=== PATIENT | male | born 1955 | race Caucasian/White ===

== ENCOUNTER 2020-08-02 11:56 | Day surgery (SDC) | payer MEDICARE, SELFPAY ==
[2020-07-26 12:29] VITALS: BMI 26.8
--- NOTE | 2020-07-31 09:03 | HO.ANESPROP2 ---
Documented by User: Lupe Purcell 07/31/20 09:07 HPI - Anesthesia Eval Consult details Narrative: 64yo M for colonoscopy, screening [facility] Past Medical History Medical History Elevated cholesterol GERD (gastroesophageal reflux disease) History of DVT of lower extremity History of pulmonary embolism Pre-diabetes Rupture of left hamstring tendon Surgical History Surgical History History of left knee surgery Social History Social History Are you a primary director long term care to a significant other at home: No Do you presently have visiting nurse or other home services: No Smoking Status: Never smoker Use of substances other than those prescribed or required for medical reasons: No Have you been hit, kicked, punched, or otherwise hurt by someone within the past year? If so, by whom?: No Advance Directives: No Advance Directives Information Provided: No Advance Directives on File: No Recently lost weight without trying: No Meds Allergies Allergy/AdvReac Type Severity Reaction Status Date / Time No Known Allergies Allergy Unverified 07/26/20 12:01 [No Known Allergies*] Home Medications Medication Instructions Recorded Confirmed Type aspirin [Aspir-81] 81 mg PO DAILY 07/26/20 08/02/20 History Exam Exam Date and Time: July 31, 2020 0903 Height,Weight and Vital Signs: Height 6 ft 2 in Weight 94.801 kg Pertinent Lab Results Pertinent Lab Results: Laboratory Tests 12/25/19 12/25/19 09:31 09:31 WBC 5.9 Hgb 16.3 Hct 46.0 Plt Count 204 Sodium 142 Potassium 4.4 Chloride 103 BUN 18 H Creatinine 1.23 Narrative Narrative: Echo 07/2018: nml study Assessment and Plan Assessment Anesthesia Assessment: Chart Reviewed Documented by User: Analisa Pollack 08/02/20 12:41 [facility] Past Medical History Medical History Elevated cholesterol GERD (gastroesophageal reflux disease) History of DVT of lower extremity History of pulmonary embolism Pre-diabetes Rupture of left hamstring tendon Surgical History Surgical History History of left knee surgery Social History Social History Are you a primary director long term care to a significant other at home: No Do you presently have visiting nurse or other home services: No Smoking Status: Never smoker Use of substances other than those prescribed or required for medical reasons: No Have you been hit, kicked, punched, or otherwise hurt by someone within the past year? If so, by whom?: No Advance Directives: No Advance Directives Information Provided: No Advance Directives on File: No Recently lost weight without trying: No Meds Allergies Allergy/AdvReac Type Severity Reaction Status Date / Time No Known Allergies Allergy Unverified 07/26/20 12:01 [No Known Allergies*] Home Medications Medication Instructions Recorded Confirmed Type aspirin [Aspir-81] 81 mg PO DAILY 07/26/20 08/02/20 History Exam Airway Mallampati Class: II TM Dist: >3cm Neck ROM: Full Heart: RRR Lungs: CTA
[2020-08-02 12:16] VITALS: BP 140/88; PULSE 63; RESP 16; TEMP 36.2; O2SAT 99
[2020-08-02] MEDS: Lactated Ringers 1,000 ML 100 ML IVCONT (12:28)
--- NOTE | 2020-08-02 13:02 | MHC.SHP ---
Pre-Procedural Eval Section A The patient is an INPATIENT: No The History & Physical has been completed within 30 days and I have reviewed it.: No Section B Chief Complaint: Gerd,Screening Details of Present Illness: Colon cancer screening, GERD, Dysphagia FH of stomach ca (Mom) Relevant Family History (Specify if Yes): Yes Relevant Social History: None Present Medications: see Short Stay Collaborative assessment Medical History: Significant History ( Hypercholesterolemia. GERD. Pre dm hga1c. DVT with PE . ) History of Previous Operations: Relevant previous surgery/procedure and date(s) (left leg hamstring ) Allergies: Allergies Allergy/AdvReac Type Severity Reaction Status Date / Time No Known Allergies Allergy Unverified 07/26/20 12:01 [No Known Allergies*] Review of Systems Sugical H&P ROS: Negative: Constitution, Cardiovascular, Respiratory and Psychiatric and Yes, Specify: Gastrointestinal (GERD) Exam Surgical H&P Exam: Normal: Heart, Normal: Lungs, Normal: Extremities and Normal: Abdomen Plan Diagnosis/Plan: Unchanged Patient has been examined and remains a candidate for the planned procedure
--- NOTE | 2020-08-02 13:20 | PM.OP ---
Brief Operative Note Date of procedure: 08/11/20 Pre-op diagnosis: Colon cancer screening, GERD, ? dysphagia Post-op diagnosis: other ( erosive esophagitis, hiatal hernia, gastric nodule, colon polyps, diverticulosis and hemorrhoids) Procedure: FLEXIBLE TRANSORAL UPPER GASTROINTESTINAL ENDOSCOPY AND COLONOSCOPY PROCEDURE NOTE UPPER ENDOSCOPY WITH BIOPSIES Consent: Indications for the procedure and potential complications of bleeding, perforation, reaction to medications and missed diagnosis were discussed with the patient and informed consent was obtained. Instrument: Olympus GIF H 190 mid size upper endoscope Monitoring: Vital signs and clinical assessment, continuous EKG monitoring, Pulse oximetry, Carbon Dioxide monitoring and blood pressure monitoring were done throughout the procedure. Procedure: The patient was placed in the left lateral decubitis position and pre-procedure medications were administered and a bite block was placed. The endoscope was inserted into the mouth and advanced under direct vision to the third part of duodenum. A careful inspection was made as the upper endoscope was withdrawn including a retroflexed examination of the proximal stomach; Findings and interventions are described below. Findings: Larynx: Normal Esophagus: GE junction at 35 cms, hiatal hernia 35 to 42 cms. Grade 3-4 esophagitis with multiple linear erosions from 30 to 35 cms. No stricture noted. Stomach: A 1.5 to 2 cms nodule with normal overlying mucosa and central umblication - biopsies were obtained. Mild gastric erythema. Biopsies were obtained. Grade 4 flap valve on retroflexed examination of the cardia. Duodenum: Nodular mucosa in apex of bulb - biopsied. Normal descending duodenum Intervention: Biopsies as noted above COLONOSCOPY TILL CECUM WITH BIOPSIES AND SNARE POLYPECTOMY Consent: Indications for the procedure and potential complications of bleeding, perforation, reaction to medications and missed diagnosis were discussed with the patient and informed consent was obtained. Instrument: Olympus PCF H 190 L variable stiffness pediatric colonoscope Monitoring: Vital signs and clinical assessment, intermittent blood pressure monitoring, continuous EKG monitoring, Pulse oximetry and Carbon Dioxide monitoring were done throughout the procedure. Colon withdrawl time was 19 minutes. Procedure: The patient was placed in the left lateral decubitis position and pre-procedure medications were administered. After a digital rectal examination of the ano-rectum, the video colonoscope was inserted into the rectum and advanced through the colon to the cecum. The colonoscope was slowly withdrawn in a retrograde panoramic fashion and the colon mucosa was carefully examined including a retroflexed view of the rectum. Findings and interventions are described below. Procedure Difficulty: Without difficulty Findings: Terminal Ileum: Not evaluated Cecum: Partially evaluated due to fair prep. A 4-5 mm sessile polyp removed with a cold bx. Ascending Colon: Normal Transverse Colon: A 7-8 mm sessile polyp removed with a cold snare. Descending Colon: Moderate diverticulosis Sigmoid Colon: Moderate diverticulosis Rectum: Normal Ano-rectum: Moderate internal hemorrhoids Colon preparation: Fair despite copious irrigation Impression and Post Procedure Diagnosis: Endoscopy Findings: ESOPHAGUS: GE junction at 35 cms, hiatal hernia 35 to 42 cms. Grade 3-4 esophagitis with multiple linear erosions from 30 to 35 cms. No stricture noted. STOMACH: A 1.5 to 2 cms nodule with normal overlying mucosa and central umblication - biopsies were obtained. Mild gastric erythema. Biopsies were obtained. Grade 4 flap valve on retroflexed examination of the cardia. DUODENUM: Nodular mucosa in apex of duodenal bulb Colonoscopy Findings: Three polyps removed Moderate diverticulosis seen in the []colon Moderate hemorrhoids on retroflexed exam. Plan: Await pathology results. If biopsies from gastric nodule are normal, [place] [facility] [place] Patient has an appointment on 08/12/20 in the GI Clinic with KVNG Cheng. Repeat Colonoscopy interval based on path results - in 1-2 years due to fair prep Above findings were reviewed with the patient and colon polyps and diverticulosis handouts were given in the discharge area Surgeon: Manju Mclain MD Anesthesia: MAC (Dr Pollack & Ninfa Ibarra CRNA) Research Scholar: Vipin Valente Estimated blood loss (mL): 0 Pathology: other (A. Stomach, antrum, biopsy. B. Gastric nodule C. Duodenal bulb, D. cecal polyp, E. transverse colon polyp, F. sigmoid colon polyp) Condition: stable Disposition: PACU
[2020-08-02 14:21] VITALS: BP 100/62; PULSE 80; RESP 16; TEMP 36.6; O2SAT 95
[2020-08-02 14:35] VITALS: BP 103/75; PULSE 82; RESP 18; TEMP 36.6; O2SAT 95
--- NOTE | 2020-08-02 15:01 | HO.POSTANES ---
Post Anesthesia Evaluation Post Anesthesia Evaluation Vital Signs: Vital Signs Temp Pulse Resp BP Pulse Ox 08/02/20 14:35 97.8 F 82 18 103/75 95 08/02/20 14:21 97.9 F 80 16 100/62 95 08/02/20 12:16 97.2 F 63 16 140/88 H 99 Anesthesia: Monitored Mental Status: Awake Pain Control: Satisfactory Nausea/Vomiting: None Hydration: Adequate Anesthesia-Related Issues: No Anes. Related Issues
== END 2020-08-02 15:07 | disposition home or self-care (01) ==
PROVIDERS: PCP Nurse Practitioner Family; Visit Provider Internal Medicine Gastroenterology
PROC: (CPT 45385; principal; 2020-08-02 13:00)
DX: Z12.11 Encounter for screening for malignant neoplasm of colon (principal); D12.0 Benign neoplasm of cecum; D12.3 Benign neoplasm of transverse colon; D12.5 Benign neoplasm of sigmoid colon; Z80.0 Family history of malignant neoplasm of digestive organs; K57.30 Diverticulosis of large intestine without perforation or abscess without bleeding; K64.8 Other hemorrhoids; K29.50 Unspecified chronic gastritis without bleeding; K21.00 Gastro-esophageal reflux disease with esophagitis, without bleeding; K44.9 Diaphragmatic hernia without obstruction or gangrene; K31.7 Polyp of stomach and duodenum; R73.03 Prediabetes; E78.00 Pure hypercholesterolemia, unspecified; Z86.718 Personal history of other venous thrombosis and embolism; Z79.01 Long term (current) use of anticoagulants; Z86.711 Personal history of pulmonary embolism; Z79.82 Long term (current) use of aspirin
CPT/HCPCS: 45385; 45380; 88305; 88342; J3010

== ENCOUNTER → 2020-08-12 08:32 | Outpatient (BNVA) | payer MEDICARE, OTHER, SELFPAY | PROVIDERS: PCP Nurse Practitioner Family; Referring Provider Nurse Practitioner Family; Visit Provider Physician Assistant | DX: K21.9 Gastro-esophageal reflux disease without esophagitis (principal); D12.6 Benign neoplasm of colon, unspecified; Z98.890 Other specified postprocedural states | CPT/HCPCS: 99212 ==

== ENCOUNTER → 2021-04-23 11:53 | Outpatient (BNVA) | payer MEDICARE, SELFPAY | PROVIDERS: PCP Nurse Practitioner Family; Visit Provider Physician Assistant | DX: Z13.89 Encounter for screening for other disorder (principal) | CPT/HCPCS: Q3014 ==

== ENCOUNTER → 2021-07-30 09:23 | Outpatient (BNVA) | payer MEDICARE, SELFPAY | PROVIDERS: PCP Nurse Practitioner Family; Referring Provider Nurse Practitioner Family; Visit Provider Physician Assistant | CPT/HCPCS: Q3014 ==

== ENCOUNTER 2021-10-30 08:07 | Outpatient (REF) | payer MEDICARE, SELFPAY ==
[2021-10-30 11:32] LABS: Prothrombin Time 10.8 SEC (9.9-13.0)
[2021-10-30 11:34] LABS: Partial Thromboplastin Time 31.3 SEC (24.1-38.0)
[2021-10-30 11:36] LABS: Appearance Urine CLOUDY; Color Urine YELLOW; Glucose Urine UA NEG (NEG); Leukocyte Esterase Urine NEG (NEG); Nitrite Urine NEG (NEG); PH 5.5 (5.0-8.0); Specific Gravity - Urine >= 1.030 (1.005-1.025); Urine Blood NEG (NEG); Urine Ketones NEG (NEG); Urine Protein NEG (NEG-TRACE)
[2021-10-30 12:06] LABS: Alanine Aminotransferase 17 U/L (0-40); Alkaline Phosphatase 60 U/L (39-117); Anion Gap 12 (12-20); Aspartate Amino Transferase 16 U/L (5-37); Bilirubin Total 0.6 mg/dL (0.0-1.0); Blood Urea Nitrogen 24 mg/dL (9-16); Calcium 9.3 mg/dL (8.4-10.2); Carbon Dioxide 27 mmol/L (22-29); Chloride 104 mmol/L (96-108); Cholesterol 195 mg/dL; Estimated Glomerular Filt Rate 59; Glucose Fasting 162 mg/dL (60-99); HDL Cholesterol 45 mg/dL; LDL Cholesterol Calculated 120 mg/dl; Potassium 4.4 mmol/L (3.3-5.1); Sodium 139 mmol/L (135-145); Triglycerides 150 mg/dL
[2021-10-30 12:19] LABS: TSH reflex Free T4 0.94 uIU/mL (0.32-4.0)
== END 2021-10-30 08:08 | disposition home or self-care (01) ==
LOC: HO.HMGCLDS 08:07
PROVIDERS: PCP Nurse Practitioner Family; Visit Provider Nurse Practitioner Family
DX: Z01.818 Encounter for other preprocedural examination (principal)
CPT/HCPCS: 36415; 80053; 80061; 81003; 84443; 85610; 85730

== ENCOUNTER 2022-03-23 15:51 | Outpatient (REF) | payer MEDICARE, SELFPAY ==
--- NOTE | ~2022-03-23 | XR_ITS ---
EXAMINATION: XR ANKLE, RIGHT CLINICAL INFORMATION: Sprain right ankle COMPARISON: None TECHNIQUE: AP, lateral, and mortise views of the right ankle. FINDINGS: The bones and soft tissues are unremarkable. No fracture. Alignment is anatomic. Joint spaces are maintained. No joint effusion. XR/XR ankle RT min 3V IMPRESSION: No evidence of a traumatic osseous injury.
== END 2022-03-23 15:52 | disposition home or self-care (01) ==
LOC: HO.HMGCX 15:51
PROVIDERS: PCP Nurse Practitioner Family; Visit Provider Internal Medicine
DX: S93.401A Sprain of unspecified ligament of right ankle, initial encounter (principal)
CPT/HCPCS: 73610

== ENCOUNTER 2022-10-11 06:04 | Emergency (ER) | payer OTHER, MEDICARE, SELFPAY ==
[2022-10-11 07:11] VITALS: BP 129/79; PULSE 78; RESP 18; TEMP 36.7; O2SAT 97; BMI 29.1
--- NOTE | 2022-10-11 08:25 | ED_ITS ---
HPI - Extremity Problem General Chief complaint: Extremity Injury, Upper Stated complaint: shoulder pain, injury Time Seen by Provider: 10/11/22 07:48 Source: patient Mode of arrival: ambulatory Limitations: no limitations History of Present Illness HPI Narrative: Patient is a 66-year-old male who presents to the emergency department for evaluation of right shoulder pain. Onset of pain was 3 days ago, states that he was tightening a strap while at work when he felt a sudden pop with pain to the right shoulder. Pain has been progressively worsening, causing decreased range of motion. He denies any history of pain to this shoulder in the past. Denies numbness, tingling, weakness, or cold sensation to the hand. He has not taken any medications to help with the pain, including any OTC. Denies any redness, swelling, deformity, rash, fevers, chills, neck pain, chest pain, shortness of breath.. Related Data Previous Rx's Medication Instructions Recorded naproxen 500 mg tablet 500 mg PO BID PRN pain #14 tabs 10/11/22 omeprazole 20 mg capsule,delayed 20 mg PO DAILY #10 caps 10/11/22 release Allergies Allergy/AdvReac Type Severity Reaction Status Date / Time No Known Allergies Allergy Verified 03/23/22 15:41 [No Known Allergies*] Review of Systems Review of Systems: Constitutional: No fever, chills, weakness or fatigue. Skin: No rash or itching. Cardiovascular: No chest pain, no palpitations Respiratory: No shortness of breath, cough or sputum production. Gastrointestinal: No nausea, vomiting or diarrhea. No abdominal pain Genitourinary: No burning micturition. No urinary frequency or incontinence. Musculoskeletal: Positive shoulder pain as noted in HPI Psychiatric: No depression or anxiety. Yes all other systems are reviewed and are negative [facility] Past Medical History Attestation statement: The following information was validated with the patient. Source: old records reviewed Medical History Acid reflux Diverticulosis Elevated cholesterol GERD (gastroesophageal reflux disease) Hemorrhoids History of DVT of lower extremity History of pulmonary embolism Pre-diabetes Rupture of left hamstring tendon Surgical History H/O colonoscopy History of esophagogastroduodenoscopy (EGD) History of left knee surgery Family History Family History Mother Gastric cancer Social History Social History Housing: House Are you a primary residential caregiver to a significant other at home: No Do you presently have visiting nurse or other home services: No Patient Tobacco Use Status: Never used Tobacco e-Cigarette/Vaping Use: Never Used 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 No acute distress.?Normal affect. Eyes: Pupils equal, round and reactive to light.? ENT: Pharynx normal.?? Neck: Normal inspection.? Neck supple.?? CVS: Heart sounds normal. Normal heart rate and rhythm.? Pulses normal.?? Respiratory: No respiratory distress.? Lung sounds clear to auscultation bilaterally?? Abdomen: Soft and non-tender. Skin: Skin warm and dry.? Normal skin color.? Extremities: Range of motion is decreased to the right shoulder, but he is able to abduct adduct and elevate the shoulder. No obvious deformity. No erythema, warmth, rash. 2+ radial pulse bilaterally. Full range of motion to the right elbow and wrist. Point tenderness along the biceps tendon insertion site. No weakness, master pilot strengths are equal and strong bilaterally Neuro: Moves all extremities spontaneously. Sensation intact bilaterally. Ambul ates with normal steady gait. Medications Administered Discontinued Medications Generic Name Dose Route Start Last Admin Trade Name Freq PRN Reason Stop Dose Admin Naproxen 500 mg 10/11/22 08:41 10/11/22 08:52 Naproxen 500 Mg Tablet PO 10/11/22 08:42 500 mg ONCE ONE Administration Medical Decision Making Medical Decision Making MDM Narrative: Patient is a 66-year-old male with a past medical history of GERD, HLD, history of DVT not currently on anticoagulation, history of left hamstring rupture. Presents emergency department for evaluation of right shoulder pain. Overall is well-appearing, not consistent with septic arthritis. XR reveals osteoarthrosis of the glenohumeral and acromioclavicular joints. Point tenderness along the biceps tendon insertion site appears most consistent with tendinitis, in addition to flare of arthritis.. Advised rest, ice/heat, acetaminophen, high- dose NSAID for which naproxen and prescription for omeprazole was sent to patient's pharmacy. Abdominal examination is benign, do not think this is consistent with referred biliary pain. Advised outpatient follow-up with PCP/Orthopedics for persistent symptoms. Reviewed worrisome signs and symptoms to return to emergency department for. All questions answered. Patient discharged in stable condition. Differential Diagnosis Differential Diagnoses: The differential diagnosis associated with the presentation includes (Tendinitis, dislocation, ligamentous tear, biliary colic) Independent Interpretation I performed an independent interpretation of an: Plain X-Ray Interpretation: I have interpreted the x-ray and agree with the radiologist's impression, there is no obvious fracture and no dislocation. Radiology Impression Discussion of test interpretation with radiology: I have reviewed the radiologist's reading. 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 Prescription Management Prescription for naproxen and omeprazole sent to patient's pharmacy. Discharge Plan Discharge Clinical Impression: Biceps tendinitis of right shoulder Patient Disposition: Home, Self-Care Instructions: Tendinitis (ED) Additional Instructions: As discussed please rest, apply ice/heat to the area for 10-15 minutes 4-6 times daily. You have been given a prescription for naproxen to take twice daily, please take this in addition to the omeprazole to prevent stomach upset. You can take Tylenol 500 mg, 2 tablets (1,000mg) every 4-6 hours as needed for pain, but not to exceed 3 doses daily (3,000mg). As discussed please follow-up with your primary care provider, if you continue to have pain over the next week or 2 you may consider following up with Orthopedics for further evaluation and treatment Return to emergency department with any new or worsening symptoms or concerns. ? Prescriptions: New naproxen 500 mg tablet 500 mg PO BID PRN (Reason: pain) Qty: 14 0RF omeprazole 20 mg capsule,delayed release(DR/EC) 20 mg PO DAILY Qty: 10 0RF Referrals: Ayaz Vera FNP-BC [Primary Care Provider] - Cathie Yang PA-C [Physician Patient Transporter] - Interventions: ED Discharge Assessment Last Done: 10/11/22 08:55 Discharge Date/Time: 10/11/22 08:55
== END 2022-10-11 08:55 | disposition home or self-care (01) ==
PROVIDERS: Emergency Provider Student in an Organized Health Care Education/Training Program; PCP Nurse Practitioner Family
DX: M75.21 Bicipital tendinitis, right shoulder (principal)
CPT/HCPCS: 73030; 99283

== ENCOUNTER 2023-02-18 14:38 | Outpatient (REF) | payer MEDICARE, SELFPAY ==
[2023-02-18 16:29] LABS: MANUAL DIFF FLAG NO
[2023-02-18 16:34] LABS: Basophils Percent Auto 0.5 % (0-2); Eosinophils Absolute Auto 0.1 X10*3/uL (0.0-0.4); Eosinophils Percent Auto 1.8 % (0-4); Hematocrit 41.6 % (42.0-52.0); Hemoglobin 15.1 g/dl (14.0-18.0); Imm Gran Abs Auto 0.01 X10*3/uL (0.00-0.03); Imm Gran Pct Auto 0.2 % (0.0-0.4); Lymphocytes Absolute Auto 1.8 X10*3/uL (1.2-4.9); Lymphocytes Percent Auto 32.6 % (20-40); Mean Corpuscular HGB Conc 36.3 g/dl (31.0-36.0); Mean Corpuscular Hemoglobin 34.2 pg (27.0-33.0); Mean Corpuscular Volume 94.3 fL (80.0-98.0); Mean Platelet Volume 11.1 fL (9.4-12.4); Monocytes Absolute Auto 0.5 X10*3/uL (0.1-1.2); Monocytes Percent Auto 9.8 % (2-11); Neutrophils Percent Auto 55.1 % (45-73); Platelet Count 195 X10*3/uL (160-400); Red Blood Count 4.41 X10*6/uL (4.60-5.80); White Blood Count 5.5 X10*3/uL (4.8-10.8)
[2023-02-18 16:35] LABS: Appearance Urine Clear; Color Urine Yellow; Glucose Urine UA >=1000 mg/dL (Negative); Leukocyte Esterase Urine Negative (Negative); Nitrite Urine Negative (Negative); PH 5.5 (5.0-9.0); Specific Gravity - Urine 1.025 (1.005-1.025); UMIC TRIGGER UACC YES; Urine Blood Negative (Negative); Urine Ketones Negative (Negative); Urine Protein Negative (Neg-Trace)
[2023-02-18 16:44] LABS: Bacteria Urine None Seen (None Seen); Hyaline Casts Urine 0-2 /LPF (0-2); RBC Urine 0-2 /HPF (0-2); Squamous Epithelial Cell Urine 0-2 /HPF (0-2); WBC Urine 0-5 /HPF (0-5)
[2023-02-18 16:52] LABS: Alanine Aminotransferase 18 U/L (0-40); Albumin Level 4.1 g/dL (3.5-5.0); Alkaline Phosphatase 67 U/L (39-117); Anion Gap 14 (12-20); Aspartate Amino Transferase 15 U/L (5-37); Bilirubin Total 0.7 mg/dL (0.0-1.0); Blood Urea Nitrogen 17 mg/dL (9-16); Calcium 9.3 mg/dL (8.4-10.2); Carbon Dioxide 27 mmol/L (22-29); Chloride 103 mmol/L (96-108); Cholesterol 224 mg/dL; Estimated Glomerular Filt Rate > 60; Glucose Fasting 174 mg/dL (60-99); HDL Cholesterol 46 mg/dL; LDL Cholesterol Calculated 127 mg/dl; Potassium 4.2 mmol/L (3.3-5.1); Sodium 140 mmol/L (135-145); Total Protein 6.7 g/dL (6.5-8.0); Triglycerides 258 mg/dL
[2023-02-18 17:09] LABS: Prostate Specific Antigen Scr 2.67 ng/mL (<0.05-4.0); TSH reflex Free T4 1.02 uIU/mL (0.32-4.0)
[2023-02-22 23:48] LABS: A. Phagocytphilium DNA,RT-PCR NOT DETECTED (NOT DETECTED); Babesia Microti DNA, RT-PCR NOT DETECTED (NOT DETECTED); Borrelia Miyamotoi,DNA RT-PCR NOT DETECTED (NOT DETECTED); E.Chaffeensis DNA RT-PCR NOT DETECTED (NOT DETECTED); Lyme(Borrelia ssp)DNA RT-PCR NOT DETECTED (NOT DETECTED)
== END 2023-02-18 14:39 | disposition home or self-care (01) ==
LOC: HO.HMGCLDS 14:38
PROVIDERS: PCP Nurse Practitioner Family; Visit Provider Nurse Practitioner Family
DX: T14.8XXA Other injury of unspecified body region, initial encounter (principal); R73.01 Impaired fasting glucose; W57.XXXA Bitten or stung by nonvenomous insect and other nonvenomous arthropods, initial encounter; Y93.9 Activity, unspecified; Y92.9 Unspecified place or not applicable; Y99.9 Unspecified external cause status; Z20.2 Contact with and (suspected) exposure to infections with a predominantly sexual mode of transmission; Z12.5 Encounter for screening for malignant neoplasm of prostate; E78.5 Hyperlipidemia, unspecified; D64.9 Anemia, unspecified
CPT/HCPCS: 36415; 80053; 80061; 81001; 84153; 84443; 85025; 87798; 87801

== ENCOUNTER 2023-02-24 10:55 | Outpatient (REF) | payer MEDICARE, SELFPAY ==
[2023-02-24 14:16] LABS: MANUAL DIFF FLAG NO
[2023-02-24 14:30] LABS: Basophils Percent Auto 0.7 % (0-2); Eosinophils Absolute Auto 0.2 X10*3/uL (0.0-0.4); Eosinophils Percent Auto 3.3 % (0-4); Hematocrit 43.5 % (42.0-52.0); Imm Gran Abs Auto 0.02 X10*3/uL (0.00-0.03); Imm Gran Pct Auto 0.4 % (0.0-0.4); Lymphocytes Absolute Auto 1.7 X10*3/uL (1.2-4.9); Lymphocytes Percent Auto 30.9 % (20-40); Mean Corpuscular HGB Conc 34.5 g/dl (31.0-36.0); Mean Corpuscular Hemoglobin 33.6 pg (27.0-33.0); Mean Corpuscular Volume 97.5 fL (80.0-98.0); Mean Platelet Volume 10.8 fL (9.4-12.4); Monocytes Absolute Auto 0.5 X10*3/uL (0.1-1.2); Monocytes Percent Auto 8.9 % (2-11); Neutrophils Percent Auto 55.8 % (45-73); Platelet Count 182 X10*3/uL (160-400); Red Blood Count 4.46 X10*6/uL (4.60-5.80); White Blood Count 5.4 X10*3/uL (4.8-10.8)
[2023-02-24 15:01] LABS: Estimated Average Glucose 177 mg/dL; Hemoglobin A1c % 7.8 %
[2023-02-24 20:58] LABS: Alanine Aminotransferase 16 U/L (0-40); Alkaline Phosphatase 64 U/L (39-117); Anion Gap 17 (12-20); Aspartate Amino Transferase 17 U/L (5-37); Bilirubin Total 1.2 mg/dL (0.0-1.0); Blood Urea Nitrogen 15 mg/dL (9-16); Calcium 9.2 mg/dL (8.4-10.2); Carbon Dioxide 24 mmol/L (22-29); Chloride 106 mmol/L (96-108); Estimated Glomerular Filt Rate > 60; Glucose Random 167 mg/dL (60-115); Iron 117 mcg/dL (45-160); Percent Iron Saturation 39 % (15-50); Potassium 4.1 mmol/L (3.3-5.1); Sodium 143 mmol/L (135-145); Total Iron Binding Capacity 298 mcg/dL (228-428); Total Protein 6.5 g/dL (6.5-8.0); Unsaturated Iron Binding 181 ug/dL
[2023-02-24 21:24] LABS: Ferritin 213 ng/mL (20-250); Folate 10.5 ng/mL (> or = 4.0); Vitamin B12 318 pg/mL (200-900)
== END 2023-02-24 10:56 | disposition home or self-care (01) ==
LOC: HO.HMGCLDS 10:55
PROVIDERS: PCP Nurse Practitioner Family; Visit Provider Nurse Practitioner Family
DX: R73.03 Prediabetes (principal); D64.9 Anemia, unspecified
CPT/HCPCS: 36415; 80053; 82607; 82728; 82746; 83036; 83540; 85025

== ENCOUNTER → 2023-03-11 08:43 | Outpatient (BNVA) | payer MEDICARE, SELFPAY | PROVIDERS: PCP Nurse Practitioner Family; Visit Provider Nurse Practitioner Family | DX: R35.0 Frequency of micturition (principal) | CPT/HCPCS: 51798; 99202 ==

== ENCOUNTER 2023-04-05 09:48 | Outpatient (REF) | payer MEDICARE, SELFPAY ==
--- NOTE | ~2023-04-05 | US_ITS ---
EXAMINATION: US RETROPERITONEAL COMPLETE (RENAL) CLINICAL INFORMATION: Frequency of micturition. COMPARISON: None available. TECHNIQUE: Real-time imaging of the kidneys and bladder. FINDINGS: RIGHT KIDNEY: 12.4 x 6.2 x 5.3 cm (SAG x AP x TRV). The kidney is normal in size, contour, and echogenicity. Renal cortical thickness is normal. No calculi or focal parenchymal lesions. No hydronephrosis. LEFT KIDNEY: 11.4 x 6.3 x 4.6 cm (SAG x AP x TRV). The kidney is normal in size, contour, and echogenicity. Renal cortical thickness is normal. No calculi or focal parenchymal lesions. No hydronephrosis. BLADDER: Well distended and normal. Bilateral ureteral jets are demonstrated. Prevoid bladder volume is 169.9 mL. Postvoid bladder volume is 64.0 mL. The prostate gland measures 5.5 x 4.5 x 4.9 cm for a volume of 64.6 mL. There are coarse calcifications within the prostate gland. US/US retroperitoneal comp IMPRESSION: Unremarkable renal ultrasound.
== END 2023-04-05 09:49 | disposition home or self-care (01) ==
LOC: HO.US 09:48
PROVIDERS: PCP Nurse Practitioner Family; Visit Provider Nurse Practitioner Family
DX: R35.0 Frequency of micturition (principal)
CPT/HCPCS: 76770

== ENCOUNTER → 2023-04-07 14:56 | Outpatient (BNVA) | payer MEDICARE, SELFPAY | PROVIDERS: PCP Nurse Practitioner Family; Visit Provider Physician Assistant | DX: Z12.11 Encounter for screening for malignant neoplasm of colon (principal); D36.9 Benign neoplasm, unspecified site; K21.9 Gastro-esophageal reflux disease without esophagitis; K57.90 Diverticulosis of intestine, part unspecified, without perforation or abscess without bleeding; R73.03 Prediabetes | CPT/HCPCS: 99212 ==

== ENCOUNTER → 2023-04-13 10:23 | Outpatient (BNVA) | payer MEDICARE, SELFPAY | PROVIDERS: Visit Provider Nurse Practitioner Family | DX: N40.1 Benign prostatic hyperplasia with lower urinary tract symptoms (principal); R35.0 Frequency of micturition | CPT/HCPCS: 51798; 99212 ==

== ENCOUNTER 2023-08-24 10:45 | Outpatient (AMB) | payer MEDICARE, OTHER, SELFPAY ==
--- NOTE | 2023-08-24 10:53 | MHC.PC.OV ---
Vital Signs 08/24/23 10:57 Height 6 ft Weight 211 lb BMI 28.6 BP 140/100 H Blood Pressure Location Lt brachial Position Sitting Pulse 75 Pulse Source Pulse Oximeter Pulse Oximetry (%) 95 Oxygen Delivery Method Room Air Intake Visit Reasons: 6 Month follow up Allergies No Known Allergies [No Known Allergies*] Allergy (Verified 08/24/23 11:14) Medication List - Last Reconciled 08/24/23 by RUPINDER Grey-ALISA bisacodyl (Dulcolax (bisacodyl)) 20 mg (4 x 5 mg) PO ONCE 1 day blood sugar diagnostic (FreeStyle Lite Strips) Use to check blood sugars twice daily, fasting and a random sugar blood-glucose meter (FreeStyle Lite Meter kit) Use to check blood sugars twice daily, fasting and a random sugar finasteride 5 mg PO DAILY 90 days lancets (FreeStyle Lancets) Use to check blood sugars twice daily, fasting and a random sugar lisinopril 2.5 mg PO DAILY metformin 500 mg PO DAILY polyethylene glycol 3350 (Miralax) 238 grams PO ONCE PRN 1 day Tobacco use date assessed: 08/24/23 HPI 6 Month follow up HPI Details Pt is a diabetic, on an KAYLA and a statin. A1C in office today is 7.2. Due for microalbumin. Denies polyuria, polydipsia, and neuropathy. Pt denies any signs and symptoms of hypoglycemia and does know how to correct it. Pt does not check his blood sugar and does not want to. Eye exam is up to date according to pt. Pt reports that he has not been taking his medications, because he was feeling off. Will resend these and have pt start these meds, one at a time, 2 weeks before restarting another med. Pt is not a fan of many medications. Pt reports feeling well. Reports his BP was much better 2.5 weeks ago. [facility] Medical History Acid reflux Diverticulosis Elevated cholesterol GERD (gastroesophageal reflux disease) Hemorrhoids History of DVT of lower extremity History of pulmonary embolism Pre-diabetes Rupture of left hamstring tendon Surgical History H/O colonoscopy History of esophagogastroduodenoscopy (EGD) History of left knee surgery Family History Mother Gastric cancer Social History Housing: House Are you a primary nurse care manager to a significant other at home: No Do you presently have visiting nurse or other home services: No Patient Tobacco Use Status: Never used Tobacco e-Cigarette/Vaping Use: Never Used 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 occupational status: retired Review of Systems Const Reports as per HPI Physical exam (Primary Care) Vital Signs: Last Vital Signs Pulse 75 08/24/23 10:57 BP 140/100 H 08/24/23 10:57 Pulse Ox 95 08/24/23 10:57 Oxygen Delivery Method Room Air 08/24/23 10:57 BMI result Body Mass Index 28.6 Tobacco/Smoking Status: Tobacco use Status Tobacco use date assessed 08/24/23 08/24/23 10:59 Patient Tobacco Use Status Never used Tobacco 08/24/23 10:54 e-Cigarette/Vaping Use Never Used 08/24/23 10:54 Const General: cooperative Orientation/consciousness: patient oriented x3 Resp Effort & Inspection: normal respiratory effort Auscultation: clear to auscultation bilaterally Cardio Rate: regular rate Rhythm: regular rhythm Heart sounds: S1 normal heart sound present and S2 normal heart sound present Neuro General: patient oriented x3 Extrem Other: bilat feet: + sensation with use of monofilament, intact Psych Appearance: grossly normal Mental Status: mental status grossly normal Speech and movement: Normal speech and movement present Affect: normal affect Attitude: cooperative Thought process: Normal thought process present Thought content: Normal thought content present Insight: Good insight present (Psych) Judgement: Good judgement present (Psych) Results AMB Hemoglobin A1c AMB Hemoglobin A1c 7.2 % Last Edit by PEDRO Odell on 08/24/23 11:26 Results Reviewed Results Reviewed: Laboratory Last Values Hgb A1c (Clinic) 7.2 % (4.0-6.0) H 08/24/23 11:25 Assessment and Plan Assessment & Plan (1) Diabetes: Code(s): E11.9 - Type 2 diabetes mellitus without complications Plan: restarting meds, one med at a time, adding medication after 2 weeks Plan The patient agreed to the use of a biomedical engineering director for this encounter. Scribed for BRITNI Espinoza by Yessica Almazan biomedical engineering director, on 08/24/2023 at 11:15 EST. Orders: Orders TSH reflex Free T4 Today E11.9 - Type 2 diabetes mellitus without complications UA CC w/rflx Micro + Cult Today E11.9 - Type 2 diabetes mellitus without complications AMB Hemoglobin A1c Today Z13.9 - Encounter for screening, unspecified Complete Blood Count Auto Diff Today E11.9 - Type 2 diabetes mellitus without complications Comprehensive [place]. Panel Fast Today E11.9 - Type 2 diabetes mellitus without complications Lipid Panel Today E11.9 - Type 2 diabetes mellitus without complications Medications: Refilled lisinopril 2.5 mg PO DAILY 90 tabs 1RF metformin 500 mg PO DAILY 90 tabs 1RF Coding Level of Care Code Est Pt Level 3 (71873) Diagnoses Diabetes E11.9
[2023-08-24 10:57] VITALS: BP 140/100; PULSE 75; O2SAT 95; BMI 28.6
== END 2023-08-24 11:39 | disposition home or self-care (01) ==
PROVIDERS: Visit Provider Nurse Practitioner Family
DX: E11.9 Type 2 diabetes mellitus without complications (principal)
CPT/HCPCS: 83036; 99213

== ENCOUNTER 2023-10-15 06:41 | Outpatient (REF) | payer MEDICARE, OTHER, SELFPAY ==
[2023-10-15 07:00] LABS: MANUAL DIFF FLAG NO
[2023-10-15 08:16] LABS: Basophils Absolute Auto 0.1 X10*3/uL (0.0-0.2); Basophils Percent Auto 0.9 % (0-2); Eosinophils Absolute Auto 0.3 X10*3/uL (0.0-0.4); Eosinophils Percent Auto 3.9 % (0-4); Hematocrit 45.2 % (42.0-52.0); Hemoglobin 15.8 g/dl (14.0-18.0); Imm Gran Abs Auto 0.02 X10*3/uL (0.00-0.03); Imm Gran Pct Auto 0.3 % (0.0-0.4); Lymphocytes Absolute Auto 2.2 X10*3/uL (1.2-4.9); Lymphocytes Percent Auto 34.5 % (20-40); Mean Corpuscular Hemoglobin 34.5 pg (27.0-33.0); Mean Corpuscular Volume 98.7 fL (80.0-98.0); Mean Platelet Volume 11.4 fL (9.4-12.4); Monocytes Absolute Auto 0.6 X10*3/uL (0.1-1.2); Monocytes Percent Auto 9.2 % (2-11); Neutrophils Absolute Auto 3.3 x10*3/uL (2.0-8.3); Neutrophils Percent Auto 51.2 % (45-73); Platelet Count 197 X10*3/uL (160-400); Red Blood Count 4.58 X10*6/uL (4.60-5.80); Red Cell Distribution Width 12.1 % (11.0-16.0); White Blood Count 6.4 X10*3/uL (4.8-10.8)
[2023-10-15 08:51] LABS: Alanine Aminotransferase 17 U/L (0-40); Albumin Level 4.1 g/dL (3.5-5.0); Alkaline Phosphatase 57 U/L (39-117); Anion Gap 13 (12-20); Aspartate Amino Transferase 18 U/L (5-37); Bilirubin Total 0.7 mg/dL (0.0-1.0); Blood Urea Nitrogen 22 mg/dL (9-16); Calcium 9.4 mg/dL (8.4-10.2); Carbon Dioxide 29 mmol/L (22-29); Chloride 102 mmol/L (96-108); Cholesterol 216 mg/dL (<200); Estimated Glomerular Filt Rate > 60; Glucose Fasting 163 mg/dL (60-99); HDL Cholesterol 49 mg/dL (>40); LDL Cholesterol Calculated 134 mg/dL (<100); Potassium 3.7 mmol/L (3.3-5.1); Sodium 140 mmol/L (135-145); Total Protein 7.2 g/dL (6.5-8.0); Triglycerides 168 mg/dL (<150)
[2023-10-15 09:08] LABS: Appearance Urine Clear; Color Urine Yellow; Glucose Urine UA Negative (Negative); Leukocyte Esterase Urine Negative (Negative); Nitrite Urine Negative (Negative); PH 5.5 (5.0-9.0); Specific Gravity - Urine 1.025 (1.005-1.025); Urine Blood Negative (Negative); Urine Ketones Negative (Negative); Urine Protein Negative (Neg-Trace)
[2023-10-15 09:10] LABS: TSH reflex Free T4 1.99 uIU/mL (0.32-4.0)
[2023-10-15 10:36] LABS: Prostate Specific Antigen 1.65 ng/mL (<0.05-4.0)
[2023-10-15 10:56] LABS: Creatinine Urine 204.32 mg/dL; Microalbum/Creatinine Ratio Ur 3.9 ug/mg cr (<30)
== END 2023-10-15 06:42 | disposition home or self-care (01) ==
LOC: HO.LAB 06:41
PROVIDERS: PCP Nurse Practitioner Family; Visit Provider Nurse Practitioner Family
DX: R35.0 Frequency of micturition (principal); N40.0 Benign prostatic hyperplasia without lower urinary tract symptoms; E11.9 Type 2 diabetes mellitus without complications; Z12.5 Encounter for screening for malignant neoplasm of prostate
CPT/HCPCS: 36415; 51798; 80053; 80061; 81003; 82043; 82570; 84153; 84443; 85025; 99212

== ENCOUNTER 2023-10-15 10:44 | Outpatient (AMB) | payer MEDICARE, OTHER, SELFPAY ==
--- NOTE | 2023-10-15 10:48 | MHC.OFFVIS ---
Intake Intake Visit Reasons: 6m/PSA Intake Note: Patient is present for follow up urinary frequency/PSA lab (psa 1.65) Urology Medications: none Blood Thinner: none PVR: 18ml's Business Analytics Analyst Required: No Accompanied by: Self / Same As Patient Allergies No Known Allergies [No Known Allergies*] Allergy (Verified 10/16/23 18:14) Medication List - Last Reconciled 10/16/23 by SHANE EppsP- bisacodyl (Dulcolax (bisacodyl)) 20 mg (4 x 5 mg) PO ONCE 1 day blood sugar diagnostic (FreeStyle Lite Strips) Use to check blood sugars twice daily, fasting and a random sugar blood-glucose meter (FreeStyle Lite Meter kit) Use to check blood sugars twice daily, fasting and a random sugar finasteride 5 mg PO DAILY 90 days lancets (FreeStyle Lancets) Use to check blood sugars twice daily, fasting and a random sugar lisinopril 2.5 mg PO DAILY metformin 500 mg PO DAILY polyethylene glycol 3350 (Miralax) 238 grams PO ONCE PRN 1 day HPI HPI Comments History of Present Illness Details Chucho is a pleasant 67-year-old male patient of Dr. Vera. He has a past medical history of GERD, diverticulosis, history of DVT of the lower extremity, history of pulmonary embolism, and diabetes. He presents to the office today for follow-up. In discussion with the patient today he reports having stopped all of his medications. He reports feeling medications made him feel worse. He reports that although he knows the medications are beneficial the generalized fatigue, diarrhea, and dizziness he feels when taking his medications is what he does not like. Discussed at length risks and benefits of taking medications as prescribed. He reports having stopped all his medications approximately 4 months ago. Recent PSA results reviewed with the patient today. 03/09--2.7 10/09--1.7 Previous workup has included a retroperitoneal ultrasound noting bilateral kidneys with no calculi, lesions, and or hydronephrosis noted. The bladder is well distended and normal. The prostate volume approximately 65 mL. During last office visit approximately 6 months ago patient had reported significant improvement in urinary frequency on 5 mg of terazosin. However, patient reports that although he has stopped taking all his medications he does not feel he has any lower urinary tract symptoms. He reports he follow-up with his PCP in December the will discussed discontinuation of his metformin, statin, and low-dose lisinopril. He currently denies any bothersome urinary issues or concerns. Discussed at length importance of managing diabetes for improvement lower urinary tract symptoms as well as overall health and well-being. Discussed most recent A1c level 7.2. In office urinalysis results reviewed with the patient today. PVR 18 mL. When asked he denies urinary urgency, urinary frequency, incontinence, nocturia, hematuria, dysuria, foul smelling urine, changes to urinary stream, flank pain, fever, and or chills. He is happy with his current voiding parameters. [facility] Medical History Acid reflux Hemorrhoids Diverticulosis Pre-diabetes History of pulmonary embolism History of DVT of lower extremity Rupture of left hamstring tendon GERD (gastroesophageal reflux disease) Elevated cholesterol Surgical History H/O colonoscopy History of esophagogastroduodenoscopy (EGD) History of left knee surgery Family History Mother Gastric cancer Social History Housing: House Are you a primary career development coordinator to a significant other at home: No Do you presently have visiting nurse or other home services: No Patient Tobacco Use Status: Never used Tobacco e-Cigarette/Vaping Use: Never Used 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 Review of Systems Const Reports no additional complaints Eyes Reports no additional complaints ENT Reports no additional complaints Card Reports no additional complaints Resp Reports no additional complaints GI Reports as per HPI Reports as per HPI Musc Reports no additional complaints Neuro Reports no additional complaints Psych Reports no additional complaints Endo Reports as per HPI Manny/Lymph Reports as per HPI Physical Exam Const General: cooperative, healthy appearing, comfortable, no acute distress, well developed, alert and awake Orientation/consciousness: patient oriented x3 Limitations: no limitations HEENT Head: Yes normal to inspection, Yes normocephalic and Yes atraumatic Ears: hearing grossly normal bilaterally Eyes General: appearance normal, both eyes and all related structures Neck Neck: Yes normal visual inspection and Yes trachea midline Chest Chest palpation & inspection: normal inspection of the chest Resp Effort & Inspection: normal respiratory effort and able to speak in complete sentences Cardio Rate: regular rate GI Inspection: Yes normal to inspection General: Yes no CVA tenderness Back/Spine/Pelvis Back: no CVA tenderness Skin General skin exam: no rashes or lesions noted Neuro General: patient oriented x3 Extrem General: Yes normal to inspection Psych Appearance: grossly normal and well kempt Mental Status: mental status grossly normal Speech and movement: Normal speech and movement present and Clear speech present Affect: normal affect Attitude: cooperative Thought process: Normal thought process present Thought content: Normal thought content present Insight: Good insight present (Psych) Judgement: Good judgement present (Psych) Office Procedures Post Void Residual Post Residual Void Post Void Residual (PVR): 18 [id number] Void Residual by ultrasound Results AMB Urinalysis, Automated UA Leukoctes 0 Dinorah/uL Last Edit by Sherpany on 10/15/23 11:17 UA Nitrite Negative Last Edit by [employer] on 10/15/23 11:17 UA Urobilinogen 0.2 mg/dL Last Edit by Sherpany on 10/15/23 11:17 UA Protein 15 mg/dL Last Edit by Ricoe [employer] on 10/15/23 11:17 UA pH 5.5 Last Edit by Sherpany on 10/15/23 11:17 UA Blood 10 Dean/uL Last Edit by Sherpany on 10/15/23 11:17 UA Specific [place] 1.030 Last Edit by Sherpany on 10/15/23 11:17 UA Ketone Negative Last Edit by Ricoe [employer] on 10/15/23 11:17 UA Bilirubin 0 mg/dL Last Edit by Ricoe [employer] on 10/15/23 11:17 UA Glucose 0 mg/dL Last Edit by Sherpany on 10/15/23 11:17 Results Reviewed Results Reviewed: Laboratory Last Values Urine pH (Auto) 5.5 10/15/23 11:01 Specific [place] (Auto) 1.030 10/15/23 11:01 Urine Protein (Auto) 15 mg/dL 10/15/23 11:01 Glucose (UA)(Auto) 0 mg/dL 10/15/23 11:01 Urine Ketones (Auto) Negative 10/15/23 11:01 Urine Blood (Auto) 10 Dean/uL 10/15/23 11:01 Urine Nitrite (Auto) Negative 10/15/23 11:01 Urine Bilirubin (Auto) 0 mg/dL 10/15/23 11:01 Urine Urobilinogen (Auto) 0.2 mg/dL 10/15/23 11:01 Leukocyte Esterase (Auto) 0 Dinorah/uL 10/15/23 11:01 Assessment & Plan Assessment & Plan (1) Enlarged prostate: Code(s): N40.0 - Benign prostatic hyperplasia without lower urinary tract symptoms (2) Urinary frequency: Code(s): R35.0 - Frequency of micturition Plan In office urinalysis results reviewed with the patient today; as noted above PVR 18 mL. Discussed at length risks and benefits of taking medications as prescribed; this was discussed at length Patient discusses he will restart medications Continue finasteride as discussed and prescribed; refill provided. Discussed, educated, and stress on the importance of managing diabetes for improvement in urinary symptoms as well as overall health and well-being. Discussed near future in office cystoscopy if symptoms arise. He reports to be happy with current voiding parameters. He denies any bothersome urinary issues or concerns at this time. PSA in 6 months. Follow-up in 6 months with lab to be completed prior; or sooner with any issues, concerns, and or questions. Orders: Orders AMB Urinalysis Automated 10/15/23 Z13.9 - Encounter for screening, unspecified Prostate Specific Antigen 6 Months N40.0 - Benign prostatic hyperplasia without lower urinary tract symptoms AMB Post Void Residual by ultrasound 10/15/23 R35.0 - Frequency of micturition Medications: Refilled finasteride 5 mg PO DAILY 90 tabs 3RF 90 days N13.8 - Other obstructive and reflux uropathy, N40.1 - Benign prostatic hyperplasia with lower urinary tract symptoms, R33.9 - Retention of urine, unspecified Patient Instructions: The patient had an opportunity to ask questions regarding the treatment plan. All questions were answered. Physical exam, labs, and imaging were discussed and reviewed in detail. As well as risks, benefits, and discussion of treatment choices. No major barriers to understanding were identified. The patient expressed understanding and agreement with the above treatment plan. The patient was made aware they should contact our office by phone for worsening of their current condition, the appearance of new symptoms, or with any questions or concerns. Compliance is encouraged with any medications and follow up testing that is ordered. It is a privilege to be allowed the opportunity to participate in? your urological care.? Again, if you have any questions or concerns If you have any questions or concerns please do not hesitate to contact me. The office is [phone]. This note is constructed using voice recognition software. While every effort has been made to ensure accuracy brewery cellar worker errors may have been included. Yours sincerely, BRITNI Epsp Coding Level of Care Code Est Pt Level 4 (46195) Diagnoses Enlarged prostate N40.0 Urinary frequency R35.0 CPT Codes Post Residual Void - PVR CPT Code: 05307-Mjys Void Residual by ultrasound ([id number]) Time Spent (min) 35
== END 2023-10-15 12:12 | disposition home or self-care (01) ==
PROVIDERS: PCP Nurse Practitioner Family; Visit Provider Nurse Practitioner Family
DX: N40.0 Benign prostatic hyperplasia without lower urinary tract symptoms (principal); R35.0 Frequency of micturition
CPT/HCPCS: 99214

== ENCOUNTER 2023-12-21 09:14 | Outpatient (AMB) | payer MEDICARE, OTHER, SELFPAY ==
--- NOTE | 2023-12-21 09:23 | A.OFFPC_ITS ---
Vital Signs 12/21/23 09:24 Height 6 ft Weight 210 lb 8 oz BMI 28.5 BP 106/70 Blood Pressure Location Rt brachial Position Sitting Pulse 64 Pulse Source Pulse Oximeter Pulse Oximetry (%) 98 Oxygen Delivery Method Room Air Intake Visit Reasons: 4 month fu Intake Note: Pt is here to follow up for his DM Allergies No Known Allergies [No Known Allergies*] Allergy (Verified 12/21/23 10:10) Medication List - Last Reconciled 12/21/23 by BRITNI Grey atorvastatin 10 mg PO BEDTIME bisacodyl (Dulcolax (bisacodyl)) 20 mg (4 x 5 mg) PO ONCE 1 day blood sugar diagnostic (FreeStyle Lite Strips) Use to check blood sugars twice daily, fasting and a random sugar blood-glucose meter (FreeStyle Lite Meter kit) Use to check blood sugars twice daily, fasting and a random sugar finasteride 5 mg PO DAILY 90 days lancets (FreeStyle Lancets) Use to check blood sugars twice daily, fasting and a random sugar lisinopril 2.5 mg PO DAILY polyethylene glycol 3350 (Miralax) 238 grams PO ONCE PRN 1 day rosuvastatin 5 mg PO DAILY Tobacco use date assessed: 12/21/23 Fall risk assessment: No Falls in past year Last assessed Fall Risk: 12/21/23 Dental Screening Dental Screen Date: 12/21/23 Did you have a dental visit in the last 12 months?: No Did you have a dental problem in the last 6 months where you did not have access to dental care?: No Was dental information given to patient?: No HPI 4 month fu HPI Details Pt is a diabetic, on an KAYLA and a statin. A1C in office today is 7.8. Microalbumin is up to date. Denies polyuria, polydipsia, and neuropathy. Pt denies any signs and symptoms of hypoglycemia and does know how to correct it. Pt reports that he has not been taking metformin because it caused diarrhea. Will start jardiance 10mg. He reports eating a lot of carbs. Pt will work on his diet. Pt will schedule his own eye exam. [facility] Medical History Diabetes Acid reflux Hemorrhoids Diverticulosis Pre-diabetes History of pulmonary embolism History of DVT of lower extremity Rupture of left hamstring tendon GERD (gastroesophageal reflux disease) Elevated cholesterol Surgical History H/O colonoscopy History of esophagogastroduodenoscopy (EGD) History of left knee surgery Family History Mother Gastric cancer Social History Housing: House Are you a primary career discovery teacher to a significant other at home: No Do you presently have visiting nurse or other home services: No Patient Tobacco Use Status: Never used Tobacco e-Cigarette/Vaping Use: Never Used 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 1. Little interest or pleasure in doing things: not at all 2. Feeling down, depressed, or hopeless: not at all 3. Trouble falling or staying asleep, or sleeping too much: not at all 4. Feeling tired or having little energy: not at all 5. Poor appetite or overeating: not at all 6. Feeling bad about yourself - or that you are a failure or have let yourself or your family down: not at all 7. Trouble concentrating on things, such as reading the newspaper or watching television: not at all 8. Moving or speaking so slowly that other people could have noticed. Or the opposite - being so fidgety or restless that you have been moving around a lot more than usual: not at all 9. Thoughts that you would be better off or of hurting yourself in some way: not at all Total score: 0 Source: Developed by Drs. Pavan Patel, Petra Hardin, Richard Miranda and colleagues, with an educational rachel from [employer]. Thrive Questionnaire Date Thrive assessed: 12/21/23 I am a: Patient What is your living situation today?: I have a steady place to live Within the past 12 months, did the food you bought not last and you didn't have the money to get more?: Never true Within the past 12 months, did you worry whether your food would run out before you got money to buy more?: Never true Do you have trouble paying for medicines?: No Do you have trouble getting transportation to medical appointments?: No Do you have trouble paying your heating and electricity bill?: No Do you have trouble taking care of your child, family member or friend?: No Do you have trouble with day-to-day activities such as bathing, preparing meals, shopping, managing finances, etc.?: No Are you currently unemployed and looking for a job?: No Are you interested in more education?: No THRIVE Score: 0 AUDIT C Alcohol Use Questionnaire (AUDIT-C) 1. How often do you have a drink containing alcohol?: 4 or more times a week 2. How many drinks containing alcohol do you have on a typical day when you are drinking?: 1 or 2 3. How often do you have six or more drinks on one occasion?: Less than monthly Total Score: 5 KELSEA-7 AMB Questionnaire KELSEA-7 Date KELSEA - 7 assessed: 12/21/23 Feeling nervous, anxious, or on edge: 0 = Not at all Not being able to stop or control worryin = Not at all Worrying too much about different things: 0 = Not at all Trouble relaxin = Not at all Being so restless that it is hard to sit still: 0 = Not at all Becoming easily annoyed or irritable: 0 = Not at all Feeling afraid as if something awful might happen: 0 = Not at all Total KELSEA-7 score (0-4 normal; 5-9 mild; 10-14 moderate; 15-21 severe): 0 Source: Developed by Drs. Pavan Patel, Petra Hardin, Richard Miranda and colleagues, with an educational rachel from [employer]. Review of Systems Const Reports as per HPI Physical exam (Primary Care) Vital Signs: Last Vital Signs Pulse 64 12/21/23 09:24 BP 106/70 12/21/23 09:24 Pulse Ox 98 12/21/23 09:24 Oxygen Delivery Method Room Air 12/21/23 09:24 BMI result Body Mass Index 28.5 Tobacco/Smoking Status: Tobacco use Status Tobacco use date assessed 12/21/23 12/21/23 09:33 Patient Tobacco Use Status Never used Tobacco 12/21/23 09:23 e-Cigarette/Vaping Use Never Used 12/21/23 09:23 PHQ-9: PHQ-9 Score PHQ-9: Total score 0 12/21/23 09:44 Thrive Assessment: Date of Thrive Assessment Date Thrive assessed 12/21/23 12/21/23 09:38 Const General: cooperative Orientation/consciousness: patient oriented x3 Resp Effort & Inspection: normal respiratory effort Auscultation: clear to auscultation bilaterally Cardio Rate: regular rate Rhythm: regular rhythm Heart sounds: S1 normal heart sound present and S2 normal heart sound present Neuro General: patient oriented x3 Extrem Other: bilat feet: + sensation with use of monofilament, feet intact, left foot 5th toe along 1st MTP joint with callous formation Psych Appearance: grossly normal Mental Status: mental status grossly normal Speech and movement: Normal speech and movement present Affect: normal affect Attitude: cooperative Thought process: Normal thought process present Thought content: Normal thought content present Insight: Good insight present (Psych) Judgement: Good judgement present (Psych) Results AMB Hemoglobin A1c AMB Hemoglobin A1c 7.8 % Last Edit by Leila Javier CMA on 12/21/23 09: 50 Assessment and Plan Assessment & Plan (1) Diabetes: Code(s): E11.9 - Type 2 diabetes mellitus without complications Plan: Labs ordered, starting jardiance 10mg Plan The patient agreed to the use of a medical delivery technician for this encounter. Scribed for BRITNI Espinoza by Yessica Almazan medical delivery technician, on 12/21/2023 at 09:40 EST. Orders: Orders AMB Hemoglobin A1c Today E11.9 - Type 2 diabetes mellitus without complications Comprehensive [place]. Panel Fast Today E11.9 - Type 2 diabetes mellitus without complications TSH reflex Free T4 Today E11.9 - Type 2 diabetes mellitus without complications Complete Blood Count Auto Diff Today E11.9 - Type 2 diabetes mellitus without complications UA CC w/rflx Micro + Cult Today E11.9 - Type 2 diabetes mellitus without complications Lipid Panel Today E11.9 - Type 2 diabetes mellitus without complications Medications: New empagliflozin (Jardiance) 10 mg PO DAILY 90 days 90 tabs 0RF Discontinued rosuvastatin Discontinued Reason: Duplicate 5 mg PO DAILY 90 tabs 0RF Coding Level of Care Code Est Pt Level 3 (88444) Diagnoses Diabetes E11.9
[2023-12-21 09:24] VITALS: BP 106/70; PULSE 64; O2SAT 98; BMI 28.5
== END 2023-12-21 10:02 | disposition home or self-care (01) ==
PROVIDERS: PCP Nurse Practitioner Family; Visit Provider Nurse Practitioner Family
DX: E11.9 Type 2 diabetes mellitus without complications (principal)
CPT/HCPCS: 83036; 99213

== ENCOUNTER 2024-03-08 06:56 | Outpatient (REF) | payer MEDICARE, OTHER, SELFPAY ==
[2024-03-08 10:15] LABS: MANUAL DIFF FLAG NO
[2024-03-08 10:22] LABS: Appearance Urine Turbid; Basophils Percent Auto 0.5 % (0-2); Color Urine Dark Yellow; Eosinophils Absolute Auto 0.2 X10*3/uL (0.0-0.4); Eosinophils Percent Auto 2.3 % (0-4); Glucose Urine UA Negative (Negative); Hematocrit 40.2 % (42.0-52.0); Hemoglobin 13.8 g/dl (14.0-18.0); Imm Gran Abs Auto 0.02 X10*3/uL (0.00-0.03); Imm Gran Pct Auto 0.3 % (0.0-0.4); Leukocyte Esterase Urine Negative (Negative); Lymphocytes Absolute Auto 1.8 X10*3/uL (1.2-4.9); Lymphocytes Percent Auto 27.2 % (20-40); Mean Corpuscular HGB Conc 34.3 g/dl (31.0-36.0); Mean Corpuscular Hemoglobin 34.1 pg (27.0-33.0); Mean Corpuscular Volume 99.3 fL (80.0-98.0); Mean Platelet Volume 11.4 fL (9.4-12.4); Monocytes Absolute Auto 0.5 X10*3/uL (0.1-1.2); Monocytes Percent Auto 8.2 % (2-11); Neutrophils Absolute Auto 4.1 x10*3/uL (2.0-8.3); Neutrophils Percent Auto 61.5 % (45-73); Nitrite Urine Negative (Negative); PH 5.5 (5.0-9.0); Platelet Count 188 X10*3/uL (160-400); Red Blood Count 4.05 X10*6/uL (4.60-5.80); Red Cell Distribution Width 12.5 % (11.0-16.0); Specific Gravity - Urine 1.025 (1.005-1.025); Urine Blood Negative (Negative); Urine Ketones Negative (Negative); Urine Protein Negative (Neg-Trace); White Blood Count 6.6 X10*3/uL (4.8-10.8)
[2024-03-08 10:59] LABS: Alanine Aminotransferase 18 U/L (0-40); Albumin Level 3.9 g/dL (3.5-5.0); Alkaline Phosphatase 60 U/L (39-117); Anion Gap 14 (12-20); Aspartate Amino Transferase 21 U/L (5-37); Bilirubin Total 0.9 mg/dL (0.0-1.0); Blood Urea Nitrogen 17 mg/dL (9-16); Calcium 9.4 mg/dL (8.4-10.2); Carbon Dioxide 27 mmol/L (22-29); Chloride 103 mmol/L (96-108); Cholesterol 145 mg/dL (<200); Estimated Glomerular Filt Rate > 60; Glucose Fasting 178 mg/dL (60-99); HDL Cholesterol 50 mg/dL (>40); LDL Cholesterol Calculated 75 mg/dL (<100); Sodium 140 mmol/L (135-145); Total Protein 6.6 g/dL (6.5-8.0); Triglycerides 102 mg/dL (<150)
[2024-03-08 11:17] LABS: TSH reflex Free T4 1.06 uIU/mL (0.32-4.0)
== END 2024-03-08 06:57 | disposition home or self-care (01) ==
LOC: HO.HMGCLDS 06:56
PROVIDERS: Nurse Practitioner Family; PCP Nurse Practitioner Family; Visit Provider Nurse Practitioner Family
DX: E11.9 Type 2 diabetes mellitus without complications (principal); N40.0 Benign prostatic hyperplasia without lower urinary tract symptoms; Z12.5 Encounter for screening for malignant neoplasm of prostate
CPT/HCPCS: 36415; 80053; 80061; 81003; 84153; 84443; 85025

== ENCOUNTER 2024-04-14 10:09 | Outpatient (AMB) | payer MEDICARE, OTHER, SELFPAY ==
--- NOTE | 2024-04-14 10:26 | A.OFFVIS_ITS ---
Intake Visit Reasons: 6M f/u w/ PSA(set) Intake Note: Patient presents today for follow up on: PSA lab PSA: 0.70 Urology Medications: Finasteride Blood Thinner: none Data Warehouse Developer Required: No Accompanied by: Self / Same As Patient Allergies No Known Allergies [No Known Allergies*] Allergy (Verified 04/14/24 11:44) Medication List - Last Reconciled 04/14/24 by BRITNI Epps atorvastatin 10 mg PO BEDTIME bisacodyl (Dulcolax (bisacodyl)) 20 mg (4 x 5 mg) PO ONCE 1 day blood sugar diagnostic (FreeStyle Lite Strips) Use to check blood sugars twice daily, fasting and a random sugar blood-glucose meter (FreeStyle Lite Meter kit) Use to check blood sugars twice daily, fasting and a random sugar empagliflozin (Jardiance) 10 mg PO DAILY 90 days finasteride 5 mg PO DAILY 90 days lancets (FreeStyle Lancets) Use to check blood sugars twice daily, fasting and a random sugar lisinopril 2.5 mg PO DAILY polyethylene glycol 3350 (Miralax) 238 grams PO ONCE PRN 1 day HPI Comments Details: Chucho is a pleasant 68-year-old male patient of Dr. Vera. He has a past medical history of GERD, diverticulosis, history of DVT of the lower extremity, history of pulmonary embolism, and diabetes. He presents to the office today for follow-up. In discussion with the patient today reports to be doing and feeling well. He reports compliance with finasteride as prescribed. He currently denies any bothersome urinary issues or concerns. Recent PSA results reviewed with the patient today as noted and trended below. 03/09 2.7, 10/09 1.7, 03/10 0.7 Previous workup has included a retroperitoneal ultrasound noting bilateral kidneys with no calculi, lesions, and or hydronephrosis noted. The bladder is well distended and normal. The prostate volume approximately 65 mL. He does report noting urinary frequency at times however does not find this bothersome. In office urinalysis results reviewed with the patient today. When asked he denies urinary urgency, urinary frequency, incontinence, nocturia, hematuria, dysuria, foul smelling urine, changes to urinary stream, flank pain, fever, and or chills. He is happy with his current voiding parameters. He otherwise offers no other issues or concerns at this time. PENDING SALE TO [facility] Medical History Diabetes Acid reflux Hemorrhoids Diverticulosis Pre-diabetes History of pulmonary embolism History of DVT of lower extremity Rupture of left hamstring tendon GERD (gastroesophageal reflux disease) Elevated cholesterol Surgical History H/O colonoscopy History of esophagogastroduodenoscopy (EGD) History of left knee surgery Family History Mother Gastric cancer Social History Housing: House Are you a primary career development consultant to a significant other at home: No Do you presently have visiting nurse or other home services: No Patient Tobacco Use Status: Never used Tobacco e-Cigarette/Vaping Use: Never Used 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 ) service: Yes Current occupational status: retired Review of Systems Const Reports no additional complaints Eyes Reports no additional complaints ENT Reports no additional complaints Card Reports no additional complaints Resp Reports no additional complaints GI Reports as per HPI Reports as per HPI Musc Reports no additional complaints Neuro Reports no additional complaints Psych Reports no additional complaints Endo Reports as per HPI Manny/Lymph Reports as per HPI Physical Exam Const General: cooperative, healthy appearing, comfortable, no acute distress, well developed, alert and awake Orientation/consciousness: patient oriented x3 Limitations: no limitations HEENT Head: Yes normal to inspection, Yes normocephalic and Yes atraumatic Ears: hearing grossly normal bilaterally Eyes General: appearance normal, both eyes and all related structures Neck Neck: Yes normal visual inspection and Yes trachea midline Chest Chest palpation & inspection: normal inspection of the chest Resp Effort & Inspection: normal respiratory effort and able to speak in complete sentences Cardio Rate: regular rate GI Inspection: Yes normal to inspection General: Yes no CVA tenderness Back/Spine/Pelvis Back: no CVA tenderness Skin General skin exam: no rashes or lesions noted Neuro General: patient oriented x3 Extrem General: Yes normal to inspection Psych Appearance: grossly normal and well kempt Mental Status: mental status grossly normal Speech and movement: Normal speech and movement present and Clear speech present Affect: normal affect Attitude: cooperative Thought process: Normal thought process present Thought content: Normal thought content present Insight: Fair insight present (Psych) Judgement: Fair judgement present (Psych) Results AMB Urinalysis, Automated UA Leukoctes 0 Dinorah/uL Last Edit by MyPrintCloudney Rodriguez on 04/14/24 10:54 UA Nitrite Negative Last Edit by Dental Corpolga on 04/14/24 10:54 UA Urobilinogen 0.2 mg/dL Last Edit by Snaptiva on 04/14/24 10:54 UA Protein 0 mg/dL Last Edit by Snaptiva on 04/14/24 10:54 UA pH 5.5 Last Edit by Snaptiva on 04/14/24 10:54 UA Blood 0 Dean/uL Last Edit by Snaptiva on 04/14/24 10:54 UA Specific [place] 1.020 Last Edit by Snaptiva on 04/14/24 10:54 UA Ketone Negative Last Edit by Snaptiva on 04/14/24 10:54 UA Bilirubin 0 mg/dL Last Edit by Snaptiva on 04/14/24 10:54 UA Glucose 0 mg/dL Last Edit by Snaptiva on 04/14/24 10:54 Results Reviewed Results Reviewed: Laboratory Last Values Urine pH (Auto) 5.5 04/14/24 10:53 Specific [place] (Auto) 1.020 04/14/24 10:53 Urine Protein (Auto) 0 mg/dL 04/14/24 10:53 Glucose (UA)(Auto) 0 mg/dL 04/14/24 10:53 Urine Ketones (Auto) Negative 04/14/24 10:53 Urine Blood (Auto) 0 Dean/uL 04/14/24 10:53 Urine Nitrite (Auto) Negative 04/14/24 10:53 Urine Bilirubin (Auto) 0 mg/dL 04/14/24 10:53 Urine Urobilinogen (Auto) 0.2 mg/dL 04/14/24 10:53 Leukocyte Esterase (Auto) 0 Dinorah/uL 04/14/24 10:53 Assessment & Plan Assessment & Plan (1) Enlarged prostate: Code(s): N40.0 - Benign prostatic hyperplasia without lower urinary tract symptoms Category: Medical (2) Urinary frequency: Code(s): R35.0 - Frequency of micturition Category: Medical (3) Retrograde ejaculation: Code(s): N53.14 - Retrograde ejaculation Category: Medical Plan In office urinalysis results reviewed with the patient today; as noted above. Recent PSA results reviewed with the patient today; as noted and trended above. Discussed taking finasteride Wednesday verses daily. He currently denies any bothersome urinary issues or concerns. He is happy with current voiding parameters. Discussed follow-up in 6 months to 1 year Will obtain PSA in 8 months Follow up in 8 months with PSA to be completed prior; or sooner with any issues, concerns, and or questions. Orders: Orders Prostate Specific Antigen 8 Months N40.0 - Benign prostatic hyperplasia without lower urinary tract symptoms, R35.0 - Frequency of micturition AMB Urinalysis Automated Today Z13.9 - Encounter for screening, unspecified Patient Instructions: The patient had an opportunity to ask questions regarding the treatment plan. All questions were answered. Physical exam, labs, and imaging were discussed and reviewed in detail. As well as risks, benefits, and discussion of treatment choices. No major barriers to understanding were identified. The patient expressed understanding and agreement with the above treatment plan. The patient was made aware they should contact our office by phone for worsening of their current condition, the appearance of new symptoms, or with any questions or concerns. Compliance is encouraged with any medications and follow up testing that is ordered. It is a privilege to be allowed the opportunity to participate in? your urological care.? Again, if you have any questions or concerns If you have any questions or concerns please do not hesitate to contact me. The office is [phone]. This note is constructed using voice recognition software. While every effort has been made to ensure accuracy surface mount technology operator errors may have been included. Yours sincerely, BRITNI Epps Coding Level of Care Code Est Pt Level 3 (13651) Diagnoses Enlarged prostate N40.0 Urinary frequency R35.0 Retrograde ejaculation N53.14
== END 2024-04-14 10:53 | disposition home or self-care (01) ==
PROVIDERS: PCP Nurse Practitioner Family; Visit Provider Nurse Practitioner Family
DX: N40.0 Benign prostatic hyperplasia without lower urinary tract symptoms (principal); R35.0 Frequency of micturition; N53.14 Retrograde ejaculation; Z13.9 Encounter for screening, unspecified
CPT/HCPCS: 99213

== ENCOUNTER → 2024-04-14 10:09 | Outpatient (BNVA) | payer MEDICARE, OTHER, SELFPAY | PROVIDERS: PCP Nurse Practitioner Family; Visit Provider Nurse Practitioner Family | DX: N40.1 Benign prostatic hyperplasia with lower urinary tract symptoms (principal); R35.0 Frequency of micturition; N53.14 Retrograde ejaculation | CPT/HCPCS: 81003 ==

== ENCOUNTER 2025-02-27 09:49 | Outpatient (REF) | payer MEDICARE, OTHER, SELFPAY ==
--- OUTSIDE RECORDS SUMMARY | 2025-02-27 10:37 | XMS_ITS | Data Portability ---
Author Organization [place] [facility], [facility] - INPATIENT Address [address] [place] [address] Care Team Providers Care Slitter Processed Film Name Role Phone FAYEENEDINA MERINO Strip Tank Tender CARRIE WARD Referring Provider Assessment Encounter Date Assessment Date Assessment LastModified by Organization Details LastModified Time 06/01/2018 06/01/2018 We went over restrictions and precautions today. He had a series of questions that I answered he said to his satisfaction. He understands the restrictions and precautions. He is going to continue with physical therapy and we will plan on seeing him back again in 4 to 6 weeks. WORK STATUS: He remains out of work. [email or web address] Not available 06/02/2018 17:10:23 07/13/2018 07/13/2018 Overall he is doing very well, happy and satisfied with the outcome. We will see him back again in 6 weeks' time. WORK STATUS: He remains out of work. [email or web address] Not available 07/18/2018 14:28:04 08/24/2018 08/24/2018 Overall besides the deep venous thrombosis and pulmonary embolus he seems to be doing well in terms of his hamstring. I want him to discuss with the primary care provider who is managing him whether they believe it is safe for him to proceed with physical therapy as I think he still needs more work on strengthening. As long as he can proceed with physical therapy the plan will be to see him back again in about 6 to 8 weeks. I am hopeful he will be able to return to work at that point as long as he is cleared by his primary care provider. [email or web address] Not available 08/29/2018 09:58:51 10/03/2018 10/03/2018 IMPRESSION: Overall he seems to be doing well. PLAN: He needs to work on physical therapy since he was out of it for a period of time secondary to his pulmonary embolism. Still on blood thinners for that. Will see him back again in follow-up in approximately 6 weeks? time. Not available 10/04/2018 14:48:19 11/09/2018 11/09/2018 PLAN: Overall doing well. From an orthopedic standpoint, he is cleared to return to full duty. He can continue to finish out his physical therapy program. He still just needs to be cleared from a pulmonary standpoint to return to work. I will see him on an as needed basis. Not available 11/10/2018 10:19:22 Plan of Treatment Reminders Order Date Submit Date Provider Last Modified By Organization Details Last Modified Time Details Appointments None record ed. Lab None record ed. Referral None record ed. Procedures None record ed. Surgeries None record ed. Imaging None record ed. Medication Orders None record ed. Patient TargetsNo targets recorded. Patient InstructionsNo instructions recorded. Reason for Referral None Reported. Procedures Surgical History Date Name Laterality Status Provider Name and Address Organization Details Recorded Time 8 Orthopaedic Surgery completed [place] [facility] 05/04/2018 11:12:45 7 Orthopaedic Surgery completed Michelle Malave [facility] 04/25/2018 13:33:18 Imaging Results None recorded. Procedure Notes None recorded. Medical Equipment None Reported. Allergies No known drug allergies Medications Name Sig Start Date Stop Date Status Note LastModified by Organization Details LastModified Time warfarin 4 mg tablet active Not Available Not Available No t Available sulfacetamid e sodium 10 % eye drops 11/09 completed Not Available Not Available Not Available warfarin 2 mg tablet 10/03 completed Not Available Not Available Not Available oxycodone 5 mg tablet 06/01 completed Not Available Not Available Not Available enoxaparin 100 mg/mL subcutaneous syringe 10/03 completed Not Available Not Available Not Available enoxaparin 40 mg/0.4 mL subcutaneous syringe INJECT 1 SYRINGE DAILY FOR 2 WEEKS 10/03 completed Not Available Not Available Not Available aspirin 11/09 completed Not Available Not Available Not Available Vitals Date Recorded Body height Body mass index (BMI) Body weight Provider Name and Address Organization Details Last Updated DateTime 06/01/2018 185.42 cm 27 kg/m2 92311.44 g Carrie Houser [facility] 06/01/2018 11:10:42 Date Recorded Body height Body mass index (BMI) Body weight Provider Name and Address Organization Details Last Updated DateTime 07/13/2018 185.42 cm 27 kg/m2 97219.44 g Rita Lares [facility] 07/13/2018 11:09:02 Date Recorded Body height Body mass index (BMI) Body weight Provider Name and Address Organization Details Last Updated DateTime 08/24/2018 185.42 cm 27 kg/m2 41312.44 g Rita Lares [facility] 08/24/2018 13:13:14 Date Recorded Body height Body mass index (BMI) Body weight Provider Name and Address Organization Details Last Updated DateTime 10/03/2018 185.42 cm 29 kg/m2 19101.32 g Nanci Aarti [facility] 10/03/2018 11:23:55 Date Recorded Body height Body mass index (BMI) Body weight Provider Name and Address Organization Details Last Updated DateTime 11/09/2018 185.42 cm 29 kg/m2 41982.32 g Omid Wall [facility] 11/09/2018 09:18:36 Social History Question Answer Notes LastModified by KPA Details LastModified Time Tobacco Smoking Status Never Smoker Michelle porter [facility] 04/25/2018 13:32:08 Have You Had Cortisone? No Information not available 04/25/2018 What Was The Date Of Your Most Recent Tobacco Screening? 11/09/2018 Information not available 05/11/2019 What Types Of Sporting Activities Do You Participate In? Walking Gym Work Information not available 04/25/2018 Sex: Unknown Functional Status Question Answer Note LastModified by KPA Details LastModified Time What is your level of alcohol consumption? 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 Moderate Information not available 04/25/2018 Mental Status None recorded. Family History Relationship Description Onset Age of this Age Resolved Age Notes LastModified by Organization Details LastModified Time Father No current problems or disability Not available 04/25 13:32:00 Mother No current problems or disability Not available 04/25 13:32:00 Medical History Condition Response Blood Clots / Phlebitis Y Heart Problems N HIV or AIDS N Depression or Anxiety N High Blood Pressure N Irregular Heartbeat N MRSA N Emphysema / Chronic Bronchitis N Any Other Significant Medical Issues N Reaction to General/Local Anesthesia N Weight Gain / Loss N Hepatitis / Jaundice N Kidney / Bladder Infections N Diabetes N Bleeding Disorder N Hearing Loss N Angina, Heart Failure or Attack N Night Sweats N Seizures / Epilepsy N Osteoarthritis / Rheumatoid arthritis / Other N Cancer N Stroke N Chemical Dependency / Alcoholism N Ulcer / Stomach Bleeding / Indigestion N Visual Loss or Glaucoma N Psoriasis / Skin Rash N Thyroid Disorder N Heart Disease N Asthma / Shortness of Breath / Sleep Stave Jointer ea (please specify) N Pulmonary Embolism N Past Encounters Encounter ID Performer Location Encounter Start Date Encounter Closed Date Diagnosis/Indication Diagnosis SNOMED-CT Code Diagnosis ICD10 Code Diagnosis Note [id number] KAVITHA STYLES MD [facility] Office [address] [place] [phone] 04/25/2018 13:09:07 04/25/2018 14:20:00 Rupture of hamstring tendon 799260041 M66.352 [id number] KAVITHA STYLES MD [facility] am Office [address] [phone] 05/04/2018 11:09:17 05/04/2018 11:52:01 Strain of hamstring tendon 339543745 S76.312D [id number] KAVITHA STYLES MD [facility] am Office [address] [phone] 06/01/2018 11:00:36 06/01/2018 11:41:39 Spontaneous rupture of extensor tendons 646753675 M66.28 [id number] KAVITHA STYLES MD [facility] am Office [address] [address] 07/13/2018 11:02:10 07/13/2018 11:23:55 Rupture of hamstring tendon 137561129 M66.352 [id number] KAVITHA STYLES MD [facility] Office [address] [place] [address] 08/24/2018 12:58:44 08/24/2018 13:33:00 Rupture of hamstring tendon 938965123 M66.352 [id number] KAVITHA STYLES MD [facility] Office [address] [place] [id number] 10/03/2018 11:17:33 10/03/2018 12:05:07 Rupture of hamstring tendon 045136046 M66.352 [id number] KAVITHA STYLES MD [facility] Office [address] [place] [address] 11/09/2018 09:16:08 11/09/2018 09:37:38 Rupture of hamstring tendon 144638220 M66.352 Health Concerns Section Related Observation LastModified by Organization Detai ls LastModified Time None Recorded Concern Status LastModified by Organization Details LastModified Time None Recorded Advance Directives Directive None Recorded Payers Insurance Date Sequence Insurance Name Policy Number Policy Arellano Covered Member ID Arellano Member ID Guarantor Name 04/26/2018 [facility] Chucho Suyapa Notes Date Note Type Note Provider Name and Address Organization Details Recorded Time 06/01/2018 text/html Chucho is back 5 weeks after his proximal hamstring repair. He is actually doing very well. No complaints today at all. KAVITHA STYLES MD [address] [place] [address], [phone], [facility] 06/02/2018 17:11:11 07/13/2018 text/html Chucho is back to day 2.5 months after his proximal hamstring repair. He really feels great. He has no complaints at all. He is working in physical therapy. They just requested more visits for him. KAVITHA STYLES MD [address] [place] [address], [phone], [facility] 07/18/2018 19:27:04 08/24/2018 text/html Chucho comes back in today after his hamstring repair almost 4 months ago. Unfortunately about a month ago he developed a pulmonary embolus and was found to have a DVT in the operative leg. He has been managed locally. He did send the records to us which I did have the opportunity to review. He has been out of physical therapy since this all occurred. He has been on Coumadin and [facility] his levels of Coumadin. Overall he has really has no complaints with his legs; he is just anxious to get moving and back into physical therapy. KAVITHA STYLES MD [address] [place] [address], [phone], [facility] 08/29/2018 12:00:41 10/03/2018 text/html HX: Chucho is milton k today 5 months after proximal hamstring repair. He is doing quite well. About 10 days ago he was working at home and tweaked his hamstring a little bit, but no bruising, ecchymosis or anything like that. He just restarted physical therapy again last . KAVITHA STYLES MD [address] [place] [address], [phone], [facility] 10/04/2018 14:55:04 11/09/2018 text/html HX: Chucho is milton k today to follow up. He is 5?? months after his proximal hamstring repair. He is actually doing fantastic. Working still in physical therapy but progressing nicely. He wishes to go back to work. He has a pulmonology appointment in the beginning of December pending for him to be able to go back to work full duty to clear him from his deep venous thrombosis. KAVITHA STYLES MD [address] [place] [address], [phone], [facility] 11/10/2018 12:14:00
--- OUTSIDE RECORDS SUMMARY | 2025-02-27 10:37 | XMS_ITS | Patient Health Record ---
Author Organization [facility] [place] Address [address] [place], [place] [address] Care Team Providers Care Trucking Contractor Name Role Phone Ayaz Daily Primary Care Provider Unav Noemi Kelsey Unavailable [phone] Allergies No Known Allergies Reason For Referral No Information Medications Medication SIG (Take, Route, Fr equency, Duration) Notes Start Date End Date Status Ibuprofen 800 MG 1 tablet Orally Thre e times a day for 14 days 10/28/2021 Active Ibuprofen 800 MG 1 tablet Orally Thre e times a day for 30 days 12/19/2019 Not-Taking Immunizations Vaccine Route Administration Date Status Comme nts COVID-19 Pfizer BioNTech Vaccine Unknown 10/23/2021 Administered First Dose: 12/28/20 Second Dose:01/18/21 Social History Tobacco Use: Social History Observation Description Date Details (start date - stop date) Never Smoker NA - NA Tobacco Use/Smoking Question Answer Notes Are you a: nonsmoker Alcohol Screen Question Answer Notes Did you have a drink contain ing alcohol in the past year? Yes How often did you have a dri nk containing alcohol in the past year? 4 or more times a week (4 points) How often did you have 6 or more drinks on one occasion in the past year? Daily or almost daily (4 points) Points 8 Interpretation Positive Tobacco use other than smoking: Question Answer Notes Are you an other tobacco user? No Problems Problem Type SNOMED Code ICD Code Onset Dates Problem Status W/U Status Risk Notes Problem [id number] Plantar wart (B07.0) Active confirmed Plan Of Treatment Pending Test Test Name Order Date X ray : Foot, left 3V 12/05/2019 X ray : Foot, right 3V 12/05/2019 X ray : Foot, right 3V 09/24/2021 X ray : Foot, right 3V 11/11/2021 Insurance Providers Payer Name Payer Address Payer Phone Subscriber Number Group Number Insured Name Patient Relationship to Insured Coverage Start Date Coverage End Date Medicare National [employer]t [employer] [address] [place] [address] [id number] Chucho Dale Self - patient is the insured [employer] [address] [place] [address] [id number] Chucho Dale Self - patient is the insured Medical (General) History Medical History History ICD Code Measles Blood clot Surgical History Surgery Date(Month/Year) knee surgery, left 1977 Hamstring surgery 2019 total excision 5th met head right 2021
[2025-02-27 14:04] LABS: Prostate Specific Antigen 1.68 ng/mL (<0.05-4.0)
== END 2025-02-27 09:50 | disposition home or self-care (01) ==
LOC: HO.HMGCLDS 09:49
PROVIDERS: PCP Nurse Practitioner Family; Visit Provider Nurse Practitioner Family
DX: N40.0 Benign prostatic hyperplasia without lower urinary tract symptoms (principal); R35.0 Frequency of micturition; Z12.5 Encounter for screening for malignant neoplasm of prostate
CPT/HCPCS: 36415; 84153

== ENCOUNTER 2025-03-06 11:17 | Outpatient (AMB) | payer MEDICARE, OTHER, SELFPAY ==
--- NOTE | 2025-03-06 11:21 | A.OFFVIS_ITS ---
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: No Accompanied by: Self / Same As Patient Allergies No Known Allergies [No Known Allergies*] Allergy (Verified 03/06/25 11:52) Medication List - Last Reconciled 03/06/25 by BRITNI Epps bisacodyl (Dulcolax (bisacodyl)) 20 mg (4 x 5 mg) PO ONCE 1 day blood sugar diagnostic (FreeStyle Lite Strips) Use to check blood sugars twice daily, fasting and a random sugar blood-glucose meter (FreeStyle Lite Meter kit) Use to check blood sugars twice daily, fasting and a random sugar lancets (FreeStyle Lancets) Use to check blood sugars twice daily, fasting and a random sugar polyethylene glycol 3350 (Miralax) 238 grams PO ONCE 1 day HPI Comments Details: Chucho is a pleasant 69-year-old male patient of Dr. Vera. He has a past medical history of GERD, diverticulosis, history of DVT of the lower extremity, history of pulmonary embolism, and diabetes. He presents to the office today for follow-up. In discussion with the patient today reports to be d oing and feeling well. He reports since his last office visit here he has since discontinued all his medications as he feels he does not want to take them in does not need to take them. We discussed recent PSA results as noted and trended below. He reports feeling when he was taking his medications he felt worse. He discusses upcoming appointment with his PCP in April and plans to discuss this with his PCP. He currently denies any bothersome urinary issues or concerns. PSAs are as follows; 03/09 2.7, 10/09 1.7, 03/10 0.7, 03/11 1.7 Previous workup has included a retroperitoneal ultrasound 04/09 noting bilateral kidneys with no calculi, lesions, and or hydronephrosis noted. The bladder is well distended and normal. The prostate volume approximately 65 mL. He does report noting urinary frequency at times however does not find this bothersome. In office urinalysis results reviewed with the patient today. When asked he denies urinary urgency, incontinence, nocturia, hematuria, dysuria, foul smelling urine, changes to urinary stream, flank pain, fever, and or chills. He is happy with his current voiding parameters. He otherwise offers no other issues or concerns at this time. [facility] Medical History Diabetes Acid reflux Hemorrhoids Diverticulosis Pre-diabetes History of pulmonary embolism History of DVT of lower extremity Rupture of left hamstring tendon GERD (gastroesophageal reflux disease) Elevated cholesterol Surgical History H/O colonoscopy History of esophagogastroduodenoscopy (EGD) History of left knee surgery Family History Mother Gastric cancer Social History Housing: House Are you a primary director of health care marketing to a significant other at home: No Do you presently have visiting nurse or other home services: No Patient Tobacco Use Status: Never used Tobacco e-Cigarette/Vaping Use: Never Used 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 Current occupational status: retired Review of Systems Const Reports no additional complaints Eyes Reports no additional complaints ENT Reports no additional complaints Card Reports no additional complaints Resp Reports no additional complaints GI Reports as per HPI Reports as per HPI Musc Reports no additional complaints Neuro Reports no additional complaints Psych Reports no additional complaints Endo Reports as per HPI Manny/Lymph Reports as per HPI Physical Exam Const General: cooperative, healthy appearing, comfortable, no acute distress, well developed, alert and awake Orientation/consciousness: patient oriented x3 Limitations: no limitations HEENT Head: Yes normal to inspection, Yes normocephalic and Yes atraumatic Ears: hearing grossly normal bilaterally Eyes General: appearance normal, both eyes and all related structures Neck Neck: Yes normal visual inspection and Yes trachea midline Chest Chest palpation & inspection: normal inspection of the chest Resp Effort & Inspection: normal respiratory effort and able to speak in complete sentences Cardio Rate: regular rate GI Inspection: Yes normal to inspection General: Yes no CVA tenderness Back/Spine/Pelvis Back: no CVA tenderness Skin General skin exam: no rashes or lesions noted Neuro General: patient oriented x3 Extrem General: Yes normal to inspection Psych Appearance: grossly normal and well kempt Mental Status: mental status grossly normal Speech and movement: Normal speech and movement present and Clear speech present Affect: normal affect Attitude: cooperative Thought process: Normal thought process present Thought content: Normal thought content present Insight: Fair insight present (Psych) Judgement: Fair judgement present (Psych) Results AMB Urinalysis, Automated UA Leukoctes 0 Dinorah/uL Last Edit by [employer] on 03/06/25 11:46 UA Nitrite Negative Last Edit by [employer] on 03/06/25 11:46 UA Urobilinogen 0.2 mg/dL Last Edit by [employer] on 03/06/25 11:46 UA Protein 0 mg/dL Last Edit by [employer] on 03/06/25 11:46 UA pH 5.5 Last Edit by [employer] on 03/06/25 11:46 UA Blood 0 Dean/uL Last Edit by [employer] on 03/06/25 11:46 UA Specific [place] 1.025 Last Edit by [employer] on 03/06/25 11:46 UA Ketone Negative Last Edit by [employer] on 03/06/25 11:46 UA Bilirubin 0 mg/dL Last Edit by [employer] on 03/06/25 11:46 UA Glucose 100 mg/dL Last Edit by [employer] on 03/06/25 11:46 Results Reviewed Results Reviewed: Laboratory Last Values Urine pH (Auto) 5.5 03/06/25 11:42 Specific [place] (Auto) 1.025 03/06/25 11:42 Urine Protein (Auto) 0 mg/dL 03/06/25 11:42 Glucose (UA)(Auto) 100 mg/dL 03/06/25 11:42 Urine Ketones (Auto) Negative 03/06/25 11:42 Urine Blood (Auto) 0 Dean/uL 03/06/25 11:42 Urine Nitrite (Auto) Negative 03/06/25 11:42 Urine Bilirubin (Auto) 0 mg/dL 03/06/25 11:42 Urine Urobilinogen (Auto) 0.2 mg/dL 03/06/25 11:42 Leukocyte Esterase (Auto) 0 Dinorah/uL 03/06/25 11:42 Assessment & Plan Assessment & Plan (1) Enlarged prostate: Code(s): N40.0 - Benign prostatic hyperplasia without lower urinary tract symptoms Category: Medical (2) Urinary frequency: Code(s): R35.0 - Frequency of micturition Category: Medical Plan In office urinalysis results reviewed with the patient today; as noted above. Recent PSA results reviewed with the patient today; as noted above. We discussed importance of taking medications as prescribed Stop finasteride Recent A1c results 01/09 7.8 we discussed importance of taking medications as prescribed as well as improvement in diabetes for improvement in lower urinary tract symptoms as well as overall health and well-being. Continue to follow-up with PCP as discussed He currently denies any bothersome urinary issues or concerns. He reports be happy with current voiding parameters. Will continue with surveillance monitoring. HILARY offered however deferred new. Will obtain PSA in 1 year. Follow-up in 1 year with PSA to be completed prior and PVR at next office visit; or sooner with any issues, concerns, and or questions. Orders: Orders AMB Urinalysis Automated Today Z13.9 - Encounter for screening, unspecified Prostate Specific Antigen 1 Year N40.0 - Benign prostatic hyperplasia without lower urinary tract symptoms Patient Instructions: The patient had an opportunity to ask questions regarding the treatment plan. All questions were answered. Physical exam, labs, and imaging were discussed and reviewed in detail. As well as risks, benefits, and discussion of treatment choices. No major barriers to understanding were identified. The patient expressed understanding and agreement with the above treatment plan. The patient was made aware they should contact our office by phone for worsening of their current condition, the appearance of new symptoms, or with any questions or concerns. Compliance is encouraged with any medications and follow up testing that is ordered. It is a privilege to be allowed the opportunity to participate in? your urological care.? Again, if you have any questions or concerns If you have any questions or concerns please do not hesitate to contact me. The office is [phone]. This note is constructed using voice recognition software. While every effort has been made to ensure accuracy irrigator valve pipe errors may have been included. Yours sincerely, RUPINDER Epps-ALISA Coding Level of Care Code Est Pt Level 3 (00323) Complex EM visit Add On G2211 Diagnoses Enlarged prostate N40.0 Urinary frequency R35.0
--- OUTSIDE RECORDS SUMMARY | 2025-03-06 12:34 | XMS_ITS | Data Portability ---
Author Organization [place] [facility] [place], [facility] BY [facility] - INPATIENT Address [address] [place] [address] Care Team Providers Care Credentials Specialist Name Role Phone FAYEENEDINA MERINO Strike Warfare/Missile Systems Officer [phone] CARRIE WARD Referring Provider Assessment Encounter Date [...] Time 8 Orthopaedic Surgery completed [place] [facility] 05/04/2018 11:12:45 7 Orthopaedic Surgery completed Michelle Malave [facility] 04/25/2018 13:33:18 Imaging Results None recorded. Procedure [...] Updated DateTime 06/01/2018 185.42 cm 27 kg/m2 26679.44 g Carrie Houser [facility] 06/01/2018 11:10:42 Date Recorded Body height Body mass index (BMI) Body weight Provider Name and Address Organization Details Last Updated DateTime 07/13/2018 185.42 cm 27 kg/m2 35629.44 g Rita Lares [facility] 07/13/2018 11:09:02 Date Recorded Body height Body mass index (BMI) Body weight Provider Name and Address Organization Details Last Updated DateTime 08/24/2018 185.42 cm 27 kg/m2 16049.44 g Rita Lares [facility] 08/24/2018 13:13:14 Date Recorded Body height Body mass index (BMI) Body weight Provider Name and Address Organization Details Last Updated DateTime 10/03/2018 185.42 cm 29 kg/m2 76532.32 g Nanci Aarti [facility] 10/03/2018 11:23:55 Date Recorded Body height Body mass index (BMI) Body weight Provider Name and Address Organization Details Last Updated DateTime 11/09/2018 185.42 cm 29 kg/m2 49884.32 g Omid Wall [facility] 11/09/2018 09:18:36 Social History Question Answer Notes LastModified by [employer] Details LastModified Time Tobacco Smoking Status Never Smoker Michelle porter [facility] 04/25/2018 13:32:08 Have You Had Cortisone? No Information not available 04/25/2018 What Was The Date Of Your Most Recent Tobacco Screening? 11/09/2018 Information not available 05/11/2019 What Types Of Sporting Activities Do You Participate In? Walking Gym Work Information not available 04/25/2018 Sex: Unknown Functional Status Question Answer Note LastModified by Organizat ion Details LastModified Time What is your level [...] available 04/25 13:32:00 Medical History Condition Response HIV or AIDS N High Blood Pressure N MRSA N Weight Gain / Loss N Angina, Heart Failure or Attack N Night Sweats N Osteoarthritis / Rheumatoid arthritis / Other N Cancer N Stroke N Visual Loss or Glaucoma N Heart Problems N Emphysema / Chronic Bronchitis N Reaction to General/Local Anesthesia N Hepatitis / Jaundice N Kidney / Bladder Infections N Bleeding Disorder N Chemical Dependency / Alcoholism N Thyroid Disorder N Pulmonary Embolism N Irregular Heartbeat N Any Other Significant Medical Issues N Hearing Loss N Seizures / Epilepsy N Ulcer / Stomach Bleeding / Indigestion N Blood Clots / Phlebitis Y Depression or Anxiety N Diabetes N Psoriasis / Skin Rash N Heart Disease N Asthma / Shortness of Breath / Sleep Director Of Quality Control ea (please specify) N Past Encounters Encounter ID Performer Location Encounter Start Date Encounter Closed Date Diagnosis/Indication Diagnosis SNOMED-CT Code Diagnosis ICD10 Code Diagnosis Note [id number] KAVITHA STYLES MD [facility] Office [address] [place] [id number] 04/25/2018 13:09:07 04/25/2018 14:20:00 Rupture of hamstring tendon 922130583 M66.352 [id number] KAVITHA STYLES MD [facility] am Office [address] [address] 05/04/2018 11:09:17 05/04/2018 11:52:01 Strain of hamstring tendon 083340075 S76.312D [id number] KAVITHA STYLES MD [facility] am Office [address] [address] 06/01/2018 11:00:36 06/01/2018 11:41:39 Spontaneous rupture of extensor tendons 667195031 M66.28 [id number] KAVITHA STYLES MD [facility] am Office [address] [id number] 07/13/2018 11:02:10 07/13/2018 11:23:55 Rupture of hamstring tendon 418012816 M66.352 [id number] KAVITHA STYLES MD [facility] Office [address] [place] [address] 08/24/2018 12:58:44 08/24/2018 13:33:00 Rupture of hamstring tendon 326893545 M66.352 [id number] KAVITHA STYLES MD [facility] Office [address] [place] [id number] 10/03/2018 11:17:33 10/03/2018 12:05:07 Rupture of hamstring tendon 348042725 M66.352 [id number] KAVITHA STYLES MD [facility] Office [address] [facility] [address] [place] [address] 11/09/2018 09:16:08 11/09/2018 09:37:38 Rupture of hamstring tendon 004074916 M66.352 Health Concerns Section Related Observation LastModified by Organization Detai ls LastModified Time None Recorded Concern Status LastModified by Organization Details LastModified Time None Recorded Advance Directives Directive None Recorded Payers Insurance Date Sequence Insurance Name Policy Number Policy Arellano Covered Member ID Arellano Member ID Guarantor Name 04/26/2018 [facility] Chucho Suyapa Notes Date Note Type Note Provider Name and Address Organization Details Recorded Time 06/01/2018 text/html Chucho is back 5 weeks after his proximal hamstring repair. He is actually doing very well. No complaints today at all. KAVITHA STYLES MD [address] [place] [address], [phone], [facility] 06/02/2018 17:11:11 07/13/2018 text/html Chucho is back to day 2.5 months after his proximal hamstring repair. He really feels great. He has no complaints at all. He is working in physical therapy. They just requested more visits for him. KAVITHA STYLES MD [address] [place] [address], [phone], [facility] 07/18/2018 19:27:04 08/24/2018 text/html Chucho comes back [...] [facility] levels [facility] Coumadin. Overall he has really has no complaints with his legs; he is just anxious to get moving and back into physical therapy. KAVITHA STYLES MD [address] [place] [address], [phone], [facility] 08/29/2018 12:00:41 10/03/2018 text/html HX: Chucho is milton k today 5 months after proximal hamstring repair. He is doing quite well. About 10 days ago he was working at home and tweaked his hamstring a little bit, but no bruising, ecchymosis or anything like that. He just restarted physical therapy again last . KAVITHA STYLES MD [address] [place] [address], [phone], [facility] 10/04/2018 14:55:04 11/09/2018 text/html HX: Chucho is milton k today to follow up. He is 5? ? ? months after his proximal hamstring repair. He is actually doing fantastic. Working still in physical therapy but progressing nicely. He wishes to go back to work. He has a pulmonology appointment in the beginning of December pending for him to be able to go back to work full duty to clear him from his deep venous thrombosis. KAVITHA STYLES MD [address] [place] [address], [phone], [facility] 11/10/2018 12:14:00
--- OUTSIDE RECORDS SUMMARY | 2025-03-06 12:34 | XMS_ITS | Patient Health Record ---
Author Organization [facility] [place] Address [address] [place], [place] [address] Care Team Providers Care Garden Consultant Name Role Phone Ayaz Daily Primary Care Provider Unav Noemi Kelsey Unavailable [phone] Allergies No Known Allergies Reason For Referral [...] Problem Status W/U Status Risk Notes Problem [id number] Plantar wart (B07.0) Active confirmed Plan Of [...] [employer] [address] [facility] [place] [address] [id number] Chucho Dale Self - patient is the insured [employer] [address] [place] [address] [id number] Chucho Dale Self - patient is the insured Medical (General) History Medical History History ICD Code Measles Blood clot Surgical History Surgery Date(Month/Year) knee surgery, left 1977 Hamstring surgery 2019 total excision 5th met head right 2021
== END 2025-03-06 11:49 | disposition home or self-care (01) ==
LOC: HO.HUSH 11:17
PROVIDERS: PCP Nurse Practitioner Family; Visit Provider Nurse Practitioner Family
DX: N40.0 Benign prostatic hyperplasia without lower urinary tract symptoms (principal); R35.0 Frequency of micturition; Z13.9 Encounter for screening, unspecified
CPT/HCPCS: 99213; G2211

== ENCOUNTER → 2025-03-06 11:17 | Outpatient (BNVA) | payer MEDICARE, OTHER, SELFPAY | PROVIDERS: PCP Nurse Practitioner Family; Visit Provider Nurse Practitioner Family | DX: N40.1 Benign prostatic hyperplasia with lower urinary tract symptoms (principal); R35.0 Frequency of micturition | CPT/HCPCS: 81003; 99212 ==

== ENCOUNTER 2025-04-04 07:14 | Outpatient (REF) | payer MEDICARE, OTHER, SELFPAY ==
[2025-04-04 10:20] LABS: Appearance Urine Turbid; Color Urine Yellow; Glucose Urine UA 250 mg/dL (Negative); Leukocyte Esterase Urine Negative (Negative); Nitrite Urine Negative (Negative); PH 5.5 (5.0-9.0); Urine Blood Negative (Negative); Urine Ketones Negative (Negative); Urine Protein Negative (Neg-Trace)
[2025-04-04 10:22] LABS: MANUAL DIFF FLAG NO
[2025-04-04 10:26] LABS: Basophils Absolute Auto 0.1 X10*3/uL (0.0-0.2); Basophils Percent Auto 1.3 % (0-2); Eosinophils Absolute Auto 0.1 X10*3/uL (0.0-0.4); Eosinophils Percent Auto 2.8 % (0-4); Hematocrit 43.6 % (42.0-52.0); Hemoglobin 14.9 g/dl (14.0-18.0); Imm Gran Abs Auto 0.01 X10*3/uL (0.00-0.03); Imm Gran Pct Auto 0.2 % (0.0-0.4); Lymphocytes Absolute Auto 1.5 X10*3/uL (1.2-4.9); Lymphocytes Percent Auto 31.7 % (20-40); Mean Corpuscular HGB Conc 34.2 g/dl (31.0-36.0); Mean Corpuscular Hemoglobin 33.7 pg (27.0-33.0); Mean Corpuscular Volume 98.6 fL (80.0-98.0); Mean Platelet Volume 11.2 fL (9.4-12.4); Monocytes Absolute Auto 0.5 X10*3/uL (0.1-1.2); Monocytes Percent Auto 10.7 % (2-11); Neutrophils Absolute Auto 2.5 x10*3/uL (2.0-8.3); Neutrophils Percent Auto 53.3 % (45-73); Platelet Count 200 X10*3/uL (160-400); Red Blood Count 4.42 X10*6/uL (4.60-5.80); Red Cell Distribution Width 12.6 % (11.0-16.0); White Blood Count 4.6 X10*3/uL (4.8-10.8)
[2025-04-04 10:50] LABS: Creatinine Urine 145.65 mg/dL; Microalbum/Creatinine Ratio Ur 4.1 ug/mg cr (<30)
[2025-04-04 10:51] LABS: Alanine Aminotransferase 16 U/L (0-40); Alkaline Phosphatase 54 U/L (39-117); Anion Gap 9 (12-20); Aspartate Amino Transferase 20 U/L (5-37); Bilirubin Total 0.7 mg/dL (0.0-1.0); Blood Urea Nitrogen 16 mg/dL (9-16); Carbon Dioxide 28 mmol/L (22-29); Chloride 105 mmol/L (96-108); Cholesterol 209 mg/dL (<200); Estimated Glomerular Filt Rate > 60; Glucose Fasting 197 mg/dL (60-99); HDL Cholesterol 52 mg/dL (>40); LDL Cholesterol Calculated 125 mg/dL (<100); Potassium 4.3 mmol/L (3.3-5.1); Sodium 138 mmol/L (135-145); Total Protein 6.6 g/dL (6.5-8.0); Triglycerides 164 mg/dL (<150)
[2025-04-04 10:59] LABS: TSH reflex Free T4 1.26 uIU/mL (0.32-4.0)
[2025-04-04 11:02] LABS: Prostate Specific Antigen Scr 1.94 ng/mL (<0.05-4.0)
== END 2025-04-04 07:15 | disposition home or self-care (01) ==
LOC: HO.HMGCLDS 07:14
PROVIDERS: PCP Nurse Practitioner Family; Visit Provider Nurse Practitioner Family
DX: Z12.5 Encounter for screening for malignant neoplasm of prostate (principal); E11.9 Type 2 diabetes mellitus without complications
CPT/HCPCS: 36415; 80053; 80061; 81003; 82043; 82570; 84153; 84443; 85025

== ENCOUNTER 2025-04-24 11:18 | Outpatient (AMB) | payer MEDICARE, OTHER, SELFPAY ==
--- NOTE | 2025-04-24 11:26 | MHC.PC.OV ---
Vital Signs 04/24/25 11:27 Height 6 ft Weight 212 lb BMI 28.7 BP 130/80 Blood Pressure Location Lt brachial Position Sitting Pulse 94 Pulse Source Pulse Oximeter Pulse Oximetry (%) 99 Intake Visit Reasons: med review Barrel Planer Required: No Accompanied by: Self / Same As Patient Allergies No Known Allergies (No Known Allergies*) Allergy (Verified 04/24/25 12:26) Medication List - Last Reconciled 04/24/25 by RUPINDER Grey- blood sugar diagnostic (FreeStyle Lite Strips) Use to check blood sugars twice daily, fasting and a random sugar blood-glucose meter (FreeStyle Lite Meter kit) Use to check blood sugars twice daily, fasting and a random sugar lancets (FreeStyle Lancets) Use to check blood sugars twice daily, fasting and a random sugar Tobacco use date assessed: 04/24/25 Fall risk assessment: No Falls in past year Last assessed Fall Risk: 04/24/25 Dental Screening Dental Screen Date: 04/24/25 Did you have a dental visit in the last 12 months?: Yes Did you have a dental problem in the last 6 months where you did not have access to dental care?: No Was dental information given to patient?: Patient has dentist HPI med review HPI Details Chief Complaint The patient presents for follow-up management of diabetes. History of Present Illness The patient is a 69-year-old male presenting with follow-up for diabetes management. He reports a hemoglobin A1c level of 8.4% and does not currently possess a glucometer, although he is aware of how to manage hypoglycemic episodes. The patient admits to poor dietary habits and expresses reluctance to initiate medication therapy at this time. Preventative care measures include a pending colon cancer screening, which the patient believes is scheduled for August. Social History - Nutritional intake: Reports poor dietary habits. Health Maintenance - Colon cancer screening scheduled for August. - Education on diet, focusing on reducing carbohydrates and sugars. Review of Systems - Cardiovascular: Denies chest pain. - Respiratory: Denies shortness of breath. - Gastrointestinal: Denies abdominal pain. - Neurological: Denies neuropathy. - Endocrine: Denies polyuria, polydipsia. Physical Exam General: Cooperative, healthy appearing, comfortable, no acute distress and well developed Orientation: Patient oriented x3 Limitations: No limitations Head: Normal to inspection Ears: Hearing grossly normal bilaterally Nose: Normal external nose present Face and sinus: Normal facial exam Eyes: Appearance normal, both eyes and all related structures Neck: Normal visual inspection and Yes full ROM Respiratory: Normal respiratory effort and able to speak in complete sentences. Clear to auscultation bilaterally Cardiovascular: Regular rate and rhythm. Normal S1 and S2 GI: Normal to inspection. Soft to palpation and nontender Skin: No rashes or lesions noted Neuro: Patient oriented x3, feet intact bilat, + sensation with use of monofilament Extremities: Normal to inspection Results - Labs: Hemoglobin A1c level of 8.4%. Plan The patient will focus on dietary modifications, specifically reducing intake of carbohydrates and sugars, over the next three months. He will be provided with a glucometer to monitor blood glucose levels at home, ensuring he knows how to use it effectively. Follow-up is scheduled in four months, with repeat laboratory tests to be conducted prior to the visit to assess progress. Discussion Notes During the visit, I emphasized the importance of dietary changes to manage diabetes, focusing on reducing carbohydrates and sugars. I discussed the need for a glucometer to monitor blood glucose levels and ensured the patient understands how to manage hypoglycemia. We agreed on a follow-up in four months, with repeat labs to evaluate progress. Patient Instructions - Focus on reducing carbohydrates and sugars in your diet. - Use the glucometer to monitor your blood glucose levels regularly. - Return for follow-up in four months with completed lab tests. [facility] Medical History Diabetes Acid reflux Hemorrhoids Diverticulosis Pre-diabetes History of pulmonary embolism History of DVT of lower extremity Rupture of left hamstring tendon GERD (gastroesophageal reflux disease) Elevated cholesterol Surgical History H/O colonoscopy History of esophagogastroduodenoscopy (EGD) History of left knee surgery Family History Mother Gastric cancer Social History Housing: House Are you a primary hospice patient care secretary to a significant other at home: No Do you presently have visiting nurse or other home services: No Patient Tobacco Use Status: Never used Tobacco e-Cigarette/Vaping Use: Never Used 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 1. Little interest or pleasure in doing things: not at all 2. Feeling down, depressed, or hopeless: not at all 3. Trouble falling or staying asleep, or sleeping too much: not at all 4. Feeling tired or having little energy: not at all 5. Poor appetite or overeating: not at all 6. Feeling bad about yourself - or that you are a failure or have let yourself or your family down: not at all 7. Trouble concentrating on things, such as reading the newspaper or watching television: not at all 8. Moving or speaking so slowly that other people could have noticed. Or the opposite - being so fidgety or restless that you have been moving around a lot more than usual: not at all 9. Thoughts that you would be better off or of hurting yourself in some way: not at all Total score: 0 Depression Screening Interpretation: Negative Depression Screening Done: Yes 57347 - PHQ-9 Billing: Yes Source: Developed by Drs. Pavan Patel, Petra Hardin, Richard Miranda and colleagues, with an educational rachel from [employer]. Thrive Questionnaire Date Thrive assessed: 04/24/25 I am a: Patient What is your living situation today?: I have a steady place to live Within the past 12 months, did the food you bought not last and you didn't have the money to get more?: Never true Within the past 12 months, did you worry whether your food would run out before you got money to buy more?: Never true Do you have trouble paying for medicines?: No Do you have trouble getting transportation to medical appointments?: No Do you have trouble paying your heating and electricity bill?: No Do you have trouble taking care of your child, family member or friend?: No Do you have trouble with day-to-day activities such as bathing, preparing meals, shopping, managing finances, etc.?: No Are you currently unemployed and looking for a job?: No Are you interested in more education?: No THRIVE Score: 0 AUDIT C Alcohol Use Questionnaire (AUDIT-C) 1. How often do you have a drink containing alcohol?: 4 or more times a week 2. How many drinks containing alcohol do you have on a typical day when you are drinking?: 1 or 2 3. How often do you have six or more drinks on one occasion?: Less than monthly Total Score: 5 Score Reviewed/Action Taken: Yes KELSEA-7 AMB Questionnaire KELSEA-7 Date KELSEA - 7 assessed: 04/24/25 Feeling nervous, anxious, or on edge: 0 = Not at all Not being able to stop or control worryin = Not at all Worrying too much about different things: 0 = Not at all Trouble relaxin = Not at all Being so restless that it is hard to sit still: 0 = Not at all Becoming easily annoyed or irritable: 0 = Not at all Feeling afraid as if something awful might happen: 0 = Not at all Total KELSEA-7 score (0-4 normal; 5-9 mild; 10-14 moderate; 15-21 severe): 0 Source: Developed by Drs. Pavan Patel, Petra Hardin, Richard Miranda and colleagues, with an educational rachel from [employer]. KELSEA-7 Assessment Billing KELSEA-7 Assessment Tool: KELSEA-7 Assessment 66159 Physical exam (Primary Care) Vital Signs: Last Vital Signs Pulse 94 04/24/25 11:27 BP 130/80 04/24/25 11:27 Pulse Ox 99 04/24/25 11:27 BMI result Body Mass Index 28.7 Tobacco/Smoking Status: Tobacco use Status Tobacco use date assessed 04/24/25 04/24/25 11:28 Patient Tobacco Use Status Never used Tobacco 04/24/25 11:28 e-Cigarette/Vaping Use Never Used 04/24/25 11:28 PHQ-9: PHQ-9 Score PHQ-9: Total score 0 04/24/25 11:28 Depression Screening Interpretation: Negative Thrive Assessment: Date of Thrive Assessment Date Thrive assessed 04/24/25 04/24/25 11:28 Results AMB Hemoglobin A1c AMB Hemoglobin A1c 8.4 % Last Edit by Viral Leavitt CMA on 04/24/25 11:52 Results Reviewed Results Reviewed: Laboratory Last Values Hgb A1c (Clinic) 8.4 % (4.0-6.0) H 04/24/25 11:51 Coding Level of Care Code Est Pt Level 3 (73948) Diagnoses Diabetes E11.9 Additional Codes KELSEA-7 Assessment Billing - KELSEA-7 Assessment Tool: KELSEA-7 Assessment 62016 ([id number]) PHQ-9 - 17400 - PHQ-9 Billing: Yes ([id number]) Assessment & Plan Assessment & Plan (1) Diabetes: Code(s): E11.9 - Type 2 diabetes mellitus without complications Category: Medical Plan . Orders: Orders AMB Hemoglobin A1c Today Z13.9 - Encounter for screening, unspecified Comprehensive [place]. Panel Fast 3 Months E11.9 - Type 2 diabetes mellitus without complications TSH reflex Free T4 3 Months E11.9 - Type 2 diabetes mellitus without complications UA CC w/rflx Micro + Cult 3 Months E11.9 - Type 2 diabetes mellitus without complications Lipid Panel 3 Months E11.9 - Type 2 diabetes mellitus without complications Complete Blood Count Auto Diff 3 Months E11.9 - Type 2 diabetes mellitus without complications Referrals Ophthalmology Referral E11.9 - Type 2 diabetes mellitus without complications
[2025-04-24 11:27] VITALS: BP 130/80; PULSE 94; O2SAT 99; BMI 28.7
--- OUTSIDE RECORDS SUMMARY | 2025-04-24 12:27 | XMS_ITS | Patient Health Record ---
Author Organization [facility] Address [address], [place] [address] Care Team Providers Care Photo Retoucher Name Role Phone Ayaz Daily Primary Care Provider Unav Noemi Kelsey Unavailable [phone] Allergies No Known Allergies Reason For Referral No Information Medications Medication SIG (Take, Route, Fr equency, Duration) Notes Start Date End Date Status Ibuprofen 800 MG 1 tablet Orally Thre e times a day; Duration: 14 days 10/28/2021 Active Ibuprofen 800 MG 1 tablet Orally Thre e times a day; Duration: 30 days 12/19/2019 Not-Takin g Immunizations Vaccine Route Administration Date Status Comme [...] Problem Status W/U Status Risk Notes Problem Plantar wart (73912449) Plantar wart (B07.0) Active confirmed Plan Of [...] [employer] [address] [place] [address] [id number] Chucho Dale Self - patient is the insured [employer] [address] [place] [address] [id number] Chucho Dale Self - patient is the insured Medical (General) History Medical History History ICD Code Measles Blood clot Surgical History Surgery Date(Month/Year) knee surgery, left 1977 Hamstring surgery 2019 total excision 5th met head right 2021
--- OUTSIDE RECORDS SUMMARY | 2025-04-24 12:27 | XMS_ITS | Data Portability ---
Author Organization [facility], [facility] - [facility]IENT Address [address] [place] [address] Care Team Providers Care Apiculturist Name Role Phone FAYEENEDINA MERINO [employer] Representative [phone] CARRIE WARD Referring Provider [phone] Assessment Encounter Date Assessment Date Assessment LastModified [...] back again in follow-up in approximately 6 weeks time. Not available 10/04/2018 14:48:19 11/09/2018 11/09/2018 [...] Time 8 Orthopaedic Surgery completed [place] [facility] 05/04/2018 11:12:45 7 Orthopaedic Surgery completed Michelle Malave [facility] 04/25/2018 13:33:18 Imaging Results None recorded. Procedure [...] Updated DateTime 11/09/2018 185.42 cm 29 kg/m2 38733.32 g Omid Duke [facility] 11/09/2018 09:18:36 Date Recorded Body height Body mass index (BMI) Body weight Provider Name and Address Organization Details Last Updated DateTime 06/01/2018 185.42 cm 27 kg/m2 97143.44 g Carrie Daniellroy [facility] 06/01/2018 11:10:42 Date Recorded Body height Body mass index (BMI) Body weight Provider Name and Address Organization Details Last Updated DateTime 07/13/2018 185.42 cm 27 kg/m2 89111.44 g Rita Lares [facility] 07/13/2018 11:09:02 Date Recorded Body height Body mass index (BMI) Body weight Provider Name and Address Organization Details Last Updated DateTime 08/24/2018 185.42 cm 27 kg/m2 07275.44 g [facility] 08/24/2018 13:13:14 Date Recorded Body height Body mass index (BMI) Body weight Provider Name and Address Organization Details Last Updated DateTime 10/03/2018 185.42 cm 29 kg/m2 33142.32 g Nanci Henaoker [facility] 10/03/2018 11:23:55 Social History Question Answer Notes LastModified by Organizat ion Details LastModified Time Tobacco Smoking Status Never Smoker Michelle porter [facility] 04/25/2018 13:32:08 Have You Had Cortisone? No [...] Condition Response Blood Clots / Phlebitis Y HIV or AIDS N Heart Problems N High Blood Pressure N Depression or Anxiety N Irregular Heartbeat N MRSA N Emphysema / Chronic Bronchitis N Any Other Significant Medical Issues N Reaction to General/Local Anesthesia N Hepatitis / Jaundice N Weight Gain / Loss N Kidney / Bladder Infections N Diabetes [...] Asthma / Shortness of Breath / Sleep Bouffant Curtain Machine Tender ea (please specify) N Pulmonary Embolism N Past Encounters Encounter ID Performer Location Encounter Start Date Encounter Closed Date Diagnosis/Indication Diagnosis SNOMED-CT Code Diagnosis ICD10 Code Diagnosis Note [id number] KAVITHA STYLES MD [facility] Office [address] [place] [phone] 04/25/2018 13:09:07 04/25/2018 14:20:00 Rupture of hamstring tendon 175431166 M66.352 [id number] KAVITHA STYLES MD [facility] am Office [address] [phone] 05/04/2018 11:09:17 05/04/2018 11:52:01 Strain of hamstring tendon 985205349 S76.312D [id number] KAVITHA STYLES MD [facility] am Office [address] [facility] [address] [address] 06/01/2018 11:00:36 06/01/2018 11:41:39 Spontaneous rupture of extensor tendons 057143836 M66.28 [id number] KAVITHA STYLES MD [facility] am Office [address] [address] 07/13/2018 11:02:10 07/13/2018 11:23:55 Rupture of hamstring tendon 042784633 M66.352 [id number] KAVITHA STYLES MD [facility] Office [address] [place] [address] 08/24/2018 12:58:44 08/24/2018 13:33:00 Rupture of hamstring tendon 339657002 M66.352 [id number] K[address]ITHA STYLES MD [facility] Office [address] [place] [phone] 10/03/2018 11:17:33 10/03/2018 12:05:07 Rupture of hamstring tendon 427314205 M66.352 [id number] KVAITHA STYLES MD [facility] Office [address] [place] [address] 11/09/2018 09:16:08 11/09/2018 09:37:38 Rupture of hamstring tendon 152876930 M66.352 Health Concerns Section Related Observation LastModified by Organization Detai ls LastModified Time None Recorded Concern Status LastModified by Organization Details LastModified Time None Recorded Advance Directives Directive None Recorded Payers Insurance Date Sequence Insurance Name Policy Number Policy Arellano Covered Member ID Arellano Member ID Guarantor Name 04/26/2018 [facility] [employer] Chucho Suyapa Notes Date Note Type Note Provider Name and Address Organization Details Recorded Time 06/01/2018 text/html Chucho is back 5 weeks after his proximal hamstring repair. He is actually doing very well. No complaints today at all. KAVITHA STYLES MD [address] [place] [address], [phone], [facility] 06/02/2018 17:11:11 07/13/2018 text/html Chucho is back to day 2.5 months after his proximal hamstring repair. He really feels great. He has no complaints at all. He is working in physical therapy. They just requested more visits for him. KAVITHA STYLES MD [address] [place] [address], [phone], [facility] 07/18/2018 19:27:04 08/24/2018 text/html Chucho comes back [...] [facility] levels [facility] Coumadin. Overall he has really has no complaints with his legs; he is just anxious to get moving and back into physical therapy. KAVITHA STYLES MD [address] [place] [address], [phone], [facility] 08/29/2018 12:00:41 10/03/2018 text/html HX: Chucho is milton k today 5 months after proximal hamstring repair. He is doing quite well. About 10 days ago he was working at home and tweaked his hamstring a little bit, but no bruising, ecchymosis or anything like that. He just restarted physical therapy again last . KAVITHA STYLES MD [address] [place] [address], [phone], [facility] 10/04/2018 14:55:04 11/09/2018 text/html HX: Chucho is milton k today to follow up. He is 5 months after his proximal hamstring repair. He is actually doing fantastic. Working still in physical therapy but progressing nicely. He wishes to go back to work. He has a pulmonology appointment in the beginning of December pending for him to be able to go back to work full duty to clear him from his deep venous thrombosis. KAVITHA STYLES MD [address] [place] [address], [phone], [facility] 11/10/2018 12:14:00
== END 2025-04-24 12:22 | disposition home or self-care (01) ==
LOC: HO.HMCC 11:23
PROVIDERS: PCP Nurse Practitioner Family; Visit Provider Nurse Practitioner Family
DX: E11.9 Type 2 diabetes mellitus without complications (principal); Z13.9 Encounter for screening, unspecified

== ENCOUNTER → 2025-04-24 11:18 | Outpatient (BNVA) | payer MEDICARE, OTHER, SELFPAY | PROVIDERS: PCP Nurse Practitioner Family; Visit Provider Nurse Practitioner Family | DX: E11.9 Type 2 diabetes mellitus without complications (principal) | CPT/HCPCS: 83036; 96127; 99212 ==